=== PATIENT | male | born 1940 | race Caucasian/White ===

== ENCOUNTER 2018-01-23 16:32 | Inpatient (IN) | payer MEDICARE, BC, MEDICAID ==
[~2018-01-23] VITALS: Ht 180.3 cm; Wt 125.3 kg
[~2018-01-23 16:32] MED LIST: ACET325 PO; APIX5 PO; ARIC5TAB PO; CYAN1000P SQ; HYDRO1%T TOPICAL; MILKSUS5 PO
[2018-01-23] MEDS ORDERED: GADODIAMIDE PF 287 MG/ML 20 ML VIAL (for RAD MRI) IVCONTRAST ONE (16:33)
[2018-01-23 16:40] VITALS: O2SAT 100
[2018-01-23] MEDS ORDERED: SODIUM CHLOR 0.9% 1000 ML INJ 1,000 ML IV ONE (16:40)
--- NOTE | 2018-01-23 16:59 | RADRPT ---
EXAM DATE: 01/23/2018 4:53 PM EDT AGE/SEX: 77 years / Male INDICATIONS: Stroke alert, left sided weakness today. CLINICAL DATA: This is the patient's initial encounter. Patient reports that signs and symptoms have been present for 1 day and indicates a pain score of Nonresponsive. MEDICAL/SURGICAL HISTORY: Non-responsive. Non-responsive. RADIATION DOSE: 52.83 CTDI (mGy) COMPARISON: CT brain 12/25/2015. Report was called by [Dr. Chilel to Dr. Rojas at 1656 hours ] TECHNIQUE: CT of the head without contrast. Using automated exposure control and adjustment of the mA and/or kV according to patient size, radiation dose was kept as low as reasonably achievable to ob tain optimal diagnostic quality images. FINDINGS: Supratentorial and infratentorial atrophy. Multiple areas of prior infarction. These involve the righ t frontal lobe, right occipital lobe, left temporal lobe, and left cerebellar hemisphere. Multiple ch ronic lacunar infarctions involving the thalami and basal ganglia bilaterally. Pronounced periventric ular low attenuation change. Prominence of the ventricles secondary to atrophy. No acute hemorrhage, acute infarction, or a mass. CONCLUSION: 1. No acute abnormality. 2. Pronounced atrophy, chronic small vessel ischemic change, and prior infarctions as detailed above . Electronically signed by: Benito Chilel MD 01/23/2018 4:58 PM EDT
[2018-01-23] MEDS ORDERED: IOHEXOL 350 MG/ML 10 ML VIAL (for RAD DIAG) IVCONTRAST ONE (17:05)
[2018-01-23 17:07] LABS: AUTOMATED NEUTROPHIL # 5.4 TH/MM3 (1.8-7.7); BASOPHIL # 0.1 TH/MM3 (0-0.2); BASOPHIL % 0.5 % (0.0-2.0); EOSINOPHIL # 0.4 TH/MM3 (0-0.4); EOSINOPHIL % 3.7 % (0.0-4.0); HEMATOCRIT 44.3 % (39.0-51.0); HEMOGLOBIN 15.5 GM/DL (13.0-17.0); LYMPH % 39.2 % (9.0-44.0); LYMPHOCYTE # 4.6 TH/MM3 (1.0-4.8); MEAN CELL VOLUME 93.7 FL (80.0-100.0); MEAN CORPUSCULAR HEMOGLOBIN 32.7 PG (27.0-34.0); MEAN CORPUSCULAR HGB CONC 34.9 % (32.0-36.0); MEAN PLATELET VOLUME 7.8 FL (7.0-11.0); MONO % 10.9 % (0.0-8.0); MONOCYTE # 1.3 TH/MM3 (0-0.9); NEUT % 45.7 % (16.0-70.0); PLATELET COUNT 240 TH/MM3 (150-450); RED BLOOD COUNT 4.73 MIL/MM3 (4.50-5.90); RED CELL DISTRIBUTION WIDTH 13.3 % (11.6-17.2); WHITE BLOOD COUNT 11.7 TH/MM3 (4.0-11.0)
[2018-01-23 17:08] VITALS: BP 182/73; PULSE 61; RESP 17; TEMP 98.6
[2018-01-23 17:13] VITALS: BP 167/77; PULSE 67; RESP 19; O2SAT 97
[2018-01-23 17:13] LABS: INTERNATIONAL NORMALIZED RATIO 1.3 RATIO; PROTHROMBIN TIME - PATIENT 12.7 SEC (9.8-11.6)
--- NOTE | 2018-01-23 17:25 | RADRPT ---
EXAM DATE: 01/23/2018 5:10 PM EDT AGE/SEX: 77 years / Male INDICATIONS: Stroke alert, left sided weakness today CLINICAL DATA: This is the patient's initial encounter. Patient reports that signs and symptoms have been present for 1 day and indicates a pain score of Nonresponsive. MEDICAL/SURGICAL HISTORY: Non-responsive. Non-responsive. RADIATION DOSE: 10.42 CTDI (mGy) COMPARISON: CT of the brain and CTA of the carotid arteries 01/23/2018. TECHNIQUE: Volumetric scanning was performed using a multi-row detector CT scanner during bolus infu josephine of 48 ml Visipaque 320 (iodixanol) nonionic water-soluble contrast as a cumulative dose for mul tiple exams. The data was post processed with a variety of visualization algorithms including full volume maximum intensity projection, multi-planar sliding thin slab reformation, curved planar reform ation, and surface rendering techniques. Using automated exposure control and adjustment of the mA a nd/or kV according to patient size, radiation dose was kept as low as reasonably achievable to obtain optimal diagnostic quality images. FINDINGS: There is excellent visualization of the major intracranial arteries out to the second-order branch ve ssels. No filling defects observed to suggest embolus or thrombus. Diffuse atherosclerotic disease mo st pronounced within the intercavernous ICAs bilaterally. Within the ICAs this is calcified with area s of 30-40% stenosis bilaterally. Noncalcified atheromatous plaque is seen involving the right M1 seg ment which is very short in this patient with variant anatomy. There is a high-grade stenosis involvi ng the right M1 segment. This is greater than 70%. Multiple areas of luminal narrowing involving ibeth pheral branches of the middle cerebral artery territories bilaterally. The left M1 segment and both a nterior cerebral arteries are patent. Bilateral P1 segment stenoses which are moderate in nature are noted. The basilar artery shows a focal area of mild luminal narrowing within its mid section and dis tally. There is no evidence for aneurysm or vascular malformation. CONCLUSION: 1. Diffuse atherosclerotic disease observed. Multiple areas of luminal narrowing with the most criti alice stenosis involving a very short segment right M1 which is greater than 70% stenotic. Electronically signed by: Benito Chilel MD 01/23/2018 5:23 PM EDT
[2018-01-23 17:29] LABS: TROPONIN I LESS THAN 0.02 NG/ML (0.02-0.05)
[2018-01-23] MEDS ORDERED: MULTTAB67 PO (18:08)
[2018-01-23] MEDS ORDERED: DEXA4VIA IM (18:08)
[2018-01-23] MEDS ORDERED: ALLO100T PO (18:08)
[2018-01-23] MEDS ORDERED: DILT240C PO (18:08)
[2018-01-23] MEDS ORDERED: NEUR100C PO (18:08)
[2018-01-23] MEDS ORDERED: MEMA1PAK PO (18:08)
[2018-01-23] MEDS ORDERED: DONE10TA7 PO (18:08)
[2018-01-23] MEDS ORDERED: TRAM50 PO (18:08)
[2018-01-23] MEDS ORDERED: METO100T PO (18:08)
[2018-01-23] MEDS ORDERED: XARE20TA PO (18:08)
--- NOTE | 2018-01-23 18:08 | PD ---
HPI Chief Complaint: Stroke Alert Time Seen by Provider: 16:39 Travel History International Travel<30 days: No Contact w/Intl Traveler<30days: No Traveled to known affect area: No History of Present Illness HPI Patient is a 77-year-old male who comes in from his nursing facility due to neurologic abnormalities. Time of onset is unclear, per EMS one nurse said that she last saw him normal at 3 PM, another says she last time normal at 1 PM. Patient has symptoms of a left-sided facial droop as well as left-sided weakness. He does have history of TIAs as well as vascular dementia. He is not speaking or providing any history. Per , he is normally alert and oriented and able to carry on conversation. She also says he has had symptoms like this in the past when he had a UTI. PFSH Past Medical History Hx Anticoagulant Therapy: Yes Atrial Fibrillation: Yes Heart Rhythm Problems: Yes Cardiac Catheterization: Yes Chest Pain: Yes Cerebrovascular Accident: Yes (TIA) Dementia: Yes Diminished Hearing: Yes Gout: Yes Genitourinary: Yes (hx of uti) Hypertension: Yes Myocardial Infarction: Yes ?: Not Social History Alcohol Use: No Tobacco Use: No Substance Use: No Allergies-Medications (Allergen,Severity, Reaction): Coded Allergies: No Known Allergies (Unverified Allergy, Unknown, 01/23/18) Reported Meds & Prescriptions Reported Meds & Active Scripts Active Reported Ultram (Tramadol HCl) 50 Mg Tab 50 Mg PO Q8H PRN Memantine HCl 5 Mg (28)-10 Mg (21) Tab.ds.pk 10 Mg PO BID Metoprolol Tartrate 100 Mg Tab 100 Mg PO BID Neurontin (Gabapentin) 100 Mg Cap 100 Mg PO HS Donepezil 10 Mg Tab 10 Mg PO HS Allopurinol 100 Mg Tab 100 Mg PO DAILY Xarelto (Rivaroxaban) 20 Mg Tab 20 Mg PO DAILY Diltiazem HCl ER (Diltiazem HCl Coated Beads) 240 Mg Cap 240 Mg PO DAILY Multiple Vitamin 1 Tab 1 Tab PO DAILY Dexamethasone Sodium Phosphate Inj (Dexamethasone Sod Phosphate Inj) 4 Mg/Ml Vial 4 Mg IM MONTHLY Review of Systems ROS Limitations: Altered Mental Status Physical Exam Narrative GENERAL: Awake and alert, not answering any questions. SKIN: Focused skin assessment warm/dry. No wounds or signs of infection. HEAD: Atraumatic. Normocephalic. EYES: Pupils equal and round and reactive. No scleral icterus. Extraocular movements intact. ENT: Mucous membranes pink and moist. NECK: Trachea midline. No JVD. CARDIOVASCULAR: Regular rate and rhythm. No murmur appreciated. RESPIRATORY: No accessory muscle use. Clear to auscultation. Breath sounds equal bilaterally. GASTROINTESTINAL: Abdomen soft, non-tender, nondistended. Hepatic and splenic margins not palpable. MUSCULOSKELETAL: No obvious deformities. No clubbing. No cyanosis. No edema. NEUROLOGICAL: Awake and alert, follows commands, but does not speak. No effort against gravity with the left arm. Left-sided facial droop present. Decreased strength of the left leg. Data Data Last Documented VS Vital Signs Date Time Temp Pulse Resp B/P (MAP) Pulse Ox O2 Delivery O2 Flow Rate FiO2 01/23/18 17:13 67 19 167/77 (107) 97 Room Air 01/23/18 17:08 98.6 01/23/18 16:40 2.00 Orders Orders Diet Npo (01/23/18 Dinner) Activity Bed Rest (01/23/18 ) Electrocardiogram (01/23/18 ) I-Stat Profile (01/23/18 16:40) Prothrombin Time / Inr (Pt) (01/23/18 16:40) Act Partial Throm Time (Ptt) (01/23/18 16:40) Complete Blood Count With Diff (01/23/18 16:40) Fibrinogen (01/23/18 16:40) Creatine Kinase (Cpk) (01/23/18 16:40) Troponin I (01/23/18 16:40) Type And Screen (01/23/18 16:40) Ct Brain W/O Iv Contrast(Rout) (01/23/18 ) Cta Brain W Iv Contrast W 3d (01/23/18 16:40) Cta Neck W Iv Contrast W 3d (01/23/18 16:40) Consult Neurology (01/23/18 ) Blood Glucose (01/23/18 16:40) Ecg Monitoring (01/23/18 16:40) Neuro Checks Q2HX12,Q4H (01/23/18 16:40) Nursing Bedside Swallow Assess .ONCE (01/23/18 16:40) Iv Access Insert/Monitor (01/23/18 16:40) NPO (01/23/18 16:40) Oximetry (01/23/18 16:40) Resp Oxygen Nc Stroke (01/23/18 ) Sodium Chlor 0.9% 1000 Ml Inj (Ns 1000 M (01/23/18 16:40) Cath For Specimen (01/23/18 16:40) Activity Bed Rest (01/23/18 ) Electrocardiogram (01/23/18 ) Drug Screen, Random Urine (01/23/18 16:45) Consult Neurology (01/23/18 ) Neuro Checks Q2HX12,Q4H (01/23/18 16:45) Nursing Bedside Swallow Assess .ONCE (01/23/18 16:45) Resp Oxygen Nc Stroke (01/23/18 ) Westergren Sedimentation Rate (01/23/18 16:59) Thyroid Stimulating Hormone (01/23/18 16:59) Vitamin B12 (01/23/18 16:59) Urinalysis - C+S If Indicated (01/23/18 16:59) Mri Brain W&W/O Contrast (01/23/18 16:59) Eeg Study (01/23/18 16:59) Outside Machinist Helper / Telemetry HUSSAIN.Q8H (01/23/18 16:59) ^ Seizure Precautions (01/23/18 16:59) [place] (01/23/18 16:59) Sodium Chlor 0.9% 1000 Ml Inj (Ns 1000 M (01/23/18 16:59) Consult Pt Eval & Treat (01/23/18 16:59) Scd&Teds Bilateral/Knee High HUSSAIN.QSHIFT (01/23/18 16:59) (Hub Use Only)Inp Phy Cons/Ref (01/23/18 ) Iohexol 350 Inj (Omnipaque 350 Inj) (01/23/18 17:05) Gadodiamide Pf Inj (Omniscan Pf Inj) (01/23/18 16:33) Aspirin Supp (Aspirin Supp) (01/23/18 18:30) Rivaroxaban (Xarelto) (01/23/18 18:30) Admit Order (Ed Use Only) (01/23/18 ) Labs Laboratory Tests Test 01/23/18 16:40 White Blood Count 11.7 TH/MM3 Red Blood Count 4.73 MIL/MM3 Hemoglobin 15.5 GM/DL Bedside Hemoglobin 15.3 G/DL Hematocrit 44.3 % Bedside Hematocrit 45.0 % Mean Corpuscular Volume 93.7 FL Mean Corpuscular Hemoglobin 32.7 PG Mean Corpuscular Hemoglobin Concent 34.9 % Red Cell Distribution Width 13.3 % Platelet Count 240 TH/MM3 Mean Platelet Volume 7.8 FL Neutrophils (%) (Auto) 45.7 % Lymphocytes (%) (Auto) 39.2 % Monocytes (%) (Auto) 10.9 % Eosinophils (%) (Auto) 3.7 % Basophils (%) (Auto) 0.5 % Neutrophils # (Auto) 5.4 TH/MM3 Lymphocytes # (Auto) 4.6 TH/MM3 Monocytes # (Auto) 1.3 TH/MM3 Eosinophils # (Auto) 0.4 TH/MM3 Basophils # (Auto) 0.1 TH/MM3 CBC Comment DIFF FINAL Differential Comment Prothrombin Time 12.7 SEC Prothromb Time International Ratio 1.3 RATIO Activated Partial Thromboplast Time 31.5 SEC Fibrinogen 419 mg/dL Bedside Sodium 143 MMOL/L Bedside Potassium 4.1 MMOL/L Bedside Chloride 103 MMOL/L Bedside Blood Urea Nitrogen 9 MG/DL Bedside Creatinine 1.0 MG/DL Bedside Glucose 111 MG/DL Total Creatine Kinase 36 U/L Troponin I LESS THAN 0.02 NG/ML MDM Medical Decision Making Medical Screen Exam Complete: Yes Emergency Medical Condition: Yes Medical Record Reviewed: Yes Interpretation(s) ECG shows A. fib with a rate of 57 Differential Diagnosis CVA versus TIA versus UTI versus electrolyte abnormality Narrative Course Patient is a 77-year-old male who comes in due to neurologic abnormalities. Exam shows a left-sided weakness and left-sided facial droop. Stroke alert called. Patient taken to CAT scan where CT head was performed. CT head shows no acute abnormalities. Patient is on Xarelto, so TPA was withheld. Last 24 hours Impressions Brain MRI 01/23/18 1659 Signed Impressions: CONCLUSION: 1. No evidence of acute infarct, hemorrhage, mass or edema. 2. Generalized atrophy 3. Moderate chronic ischemic white matter disease with focal areas of chronic deep white matter infarction. 4. Stable left temporal and left cerebellar encephalomalacia. Head CTA 01/23/18 1640 Signed Impressions: CONCLUSION: 1. Diffuse atherosclerotic disease observed. Multiple areas of luminal narrowi ng with the most critical stenosis involving a very short segment right M1 whic h is greater than 70% stenotic. Head CT 01/23/18 0000 Signed Impressions: CONCLUSION: 1. No acute abnormality. 2. Pronounced atrophy, chronic small vessel ischemic change, and prior infarct ions as detailed above. Dr. Rojas has seen the patient, orders placed. He will be admitted to medicine for further management. Diagnosis Primary Impression: CVA (cerebral vascular accident) Qualified Codes: I63.9 - Cerebral infarction, unspecified Admitting Information Admitting Physician Requests: Admit Charu Yang MD January 23, 2018 18:08
--- NOTE | 2018-01-23 18:11 | RADRPT ---
EXAM DATE: 01/23/2018 6:03 PM EDT AGE/SEX: 77 years / Male INDICATIONS: Stroke alert. Left side weakness. CLINICAL DATA: This is the patient's initial encounter. Patient reports that signs and symptoms have been present for 1 day and indicates a pain score of 0/10. MEDICAL/SURGICAL HISTORY: Hypertension. Discectomy, lumbar. Coronary artery stent. COMPARISON: [facility] [place], MRI BRAIN W & W/O CONTRAST, 12/26/2015. . TECHNIQUE: Multiplanar, multisequence examination of the brain was performed without and with 20 ml O mniscan (gadodiamide) contrast as a single exam dose. FINDINGS: Cerebrum: Generalized atrophy with enlargement of the CSF spaces is again noted and appear stable. F ocal area of encephalomalacia is identified anteriorly in the left temporal lobe which is unchanged. No evidence of midline shift, mass lesion, hemorrhage or acute infarction. No extraaxial fluid colle ctions are seen. The pituitary gland and suprasellar cistern are normal in configuration. White Matter: Moderate periventricular T2 hyperintense changes are noted. There are focal areas of c ystic degeneration within the periventricular white matter characteristic of old deep white matter in farcts. These are identified previously. There is no evidence of acute white matter infarct. Posterior Fossa: Focal encephalomalacia is again identified along the posterior inferior surface of t he left cerebellar hemisphere. Brainstem and cerebellum are otherwise stable. Diffusion Imaging: No focal areas of restricted diffusion are seen. No evidence of acute infarction . Extracranial: The visualized portions of the orbits and paranasal sinuses are unremarkable. Post Contrast: No abnormal areas of parenchymal or dural enhancement. No evidence of blood-brain ba rrier breakdown. CONCLUSION: 1. No evidence of acute infarct, hemorrhage, mass or edema. 2. Generalized atrophy 3. Moderate chronic ischemic white matter disease with focal areas of chronic deep white matter infa rction. 4. Stable left temporal and left cerebellar encephalomalacia. Electronically signed by: Anup Post MD 01/23/2018 6:09 PM EDT
--- NOTE | 2018-01-23 18:12 | HHI.HP ---
[facility] Service Family Medicine Primary Care Physician Daniel Rob MD (Paul) Admission Diagnosis Diagnoses: International Travel<30 Days: No Contact w/Intl Traveler<30days: No Known Affected Area: No History of Present Illness 77-year-old male with history of A. fib, multiple TIAs, CAD 4 stents, hypertension, and dementia presents to the ED via EVAC for left-sided weakness and slurred speech. He is a resident of [facility]. Accompanied by , who provides all of the history. states that she got a call from the [facility] around 2 PM this afternoon. Nursing staff are concerned because patient appears lethargic and was not responding. Patient was noted to have left arm weakness and slurred speech. Patient was manually brought to the ED via EVAC. Unsure timeframe when patient was last seen normal. states that his symptoms are similar to when he had a UTI in the past. also states that patient has gained some slight function back in his left side while in the ER. He endorses shortness of breath but no chest pain. Patient has no history of seizures. He denies fevers, nausea vomiting, headaches, vision changes, weight loss, back pain, abdominal pain, and dysuria. (Melia Alfaro MD R1) Review of Systems Constitutional: DENIES: Fever, Weight loss Eyes: DENIES: Vision loss Ears, nose, mouth, throat: DENIES: Oral lesions, Running Nose Respiratory: COMPLAINS OF: Shortness of breath, DENIES: Cough Cardiovascular: DENIES: Chest pain, Palpitations Gastrointestinal: DENIES: Abdominal pain, Nausea, Vomiting Genitourinary: DENIES: Dysuria Musculoskeletal: DENIES: Muscle aches Hematologic/lymphatic: DENIES: Lymphadenopathy Neurologic: DENIES: Headache (Melia Alafro MD R1) Past Family Social History Past Medical History CAD Afib TIA HTN Hyperlipidemia Asthma Gout Past Surgical History CAD with 4 stents (Melia Alfaro MD R1) Allergies: Coded Allergies: No Known Allergies (Unverified Allergy, Unknown, 01/23/18) Family History Dad [place] - 62 Mom- [place]- 80s Daughter 44- hemorrhagic stroke Social History currently lives at [facility] Used to drink in the past Denies tobacco use- never smoker No illicit use (Melia Alfaro MD R1) Physical Exam Vital Signs Vital Signs Date Time Temp Pulse Resp B/P (MAP) Pulse Ox O2 Delivery O2 Flow Rate FiO2 01/23/18 17:13 67 19 167/77 (107) 97 Room Air 01/23/18 17:12 95 Room Air 01/23/18 17:08 98.6 61 17 182/73 (109) 01/23/18 16:40 100 Nasal Cannula 2.00 01/23/18 16:40 100 2.00 Physical Exam GENERAL: Elderly male lying in bed with head flat, at bedside SKIN: Stasis dermatitis in lower extremities HEAD: Atraumatic. Normocephalic. No temporal or scalp tenderness. EYES: Pinpoint pupils bilaterally ENT: Nose without bleeding, purulent drainage or septal hematoma. Throat without erythema, tonsillar hypertrophy or exudate. Uvula midline. Airway patent. NECK: Trachea midline. No JVD or lymphadenopathy. Supple, nontender, no meningeal signs. CARDIOVASCULAR: Irregular rate and rhythm RESPIRATORY: Clear to auscultation. Breath sounds equal bilaterally. No wheezes , rales, or rhonchi. GASTROINTESTINAL: Abdomen soft, non-tender, nondistended. No hepato-splenomegaly , or palpable masses. No guarding. MUSCULOSKELETAL: Nonpitting edema bilaterally. No calf tenderness. Negative Homans sign bilaterally. NEUROLOGICAL: Awake and alert. Oriented 3. Able to tell me his name. Having difficulty speaking and coming up with words. Able to follow commands. Otherwise cranial nerves intact. No facial droop noted. Sensation intact throughout. 3/5 strength in left arm compared to right arm. 4/5 strength in the left leg compared to right leg. Pedal pulses 2+. No clonus noted. Patient is able to do finger-nose test with the right side, unable to do with the left side. Reflexes 2+. Unable to perform pronator drift. Laboratory Laboratory Tests Test 01/23/18 16:40 White Blood Count 11.7 Red Blood Count 4.73 Hemoglobin 15.5 Bedside Hemoglobin 15.3 Hematocrit 44.3 Bedside Hematocrit 45.0 Mean Corpuscular Volume 93.7 Mean Corpuscular Hemoglobin 32.7 Mean Corpuscular Hemoglobin Concent 34.9 Red Cell Distribution Width 13.3 Platelet Count 240 Mean Platelet Volume 7.8 Neutrophils (%) (Auto) 45.7 Lymphocytes (%) (Auto) 39.2 Monocytes (%) (Auto) 10.9 Eosinophils (%) (Auto) 3.7 Basophils (%) (Auto) 0.5 Neutrophils # (Auto) 5.4 Lymphocytes # (Auto) 4.6 Monocytes # (Auto) 1.3 Eosinophils # (Auto) 0.4 Basophils # (Auto) 0.1 CBC Comment DIFF FINAL Differential Comment Prothrombin Time 12.7 Prothromb Time International Ratio 1.3 Activated Partial Thromboplast Time 31.5 Fibrinogen 419 Bedside Sodium 143 Bedside Potassium 4.1 Bedside Chloride 103 Bedside Blood Urea Nitrogen 9 Bedside Creatinine 1.0 Bedside Glucose 111 Total Creatine Kinase 36 Troponin I LESS THAN 0.02 (Melia Alfaro MD R1) Result Diagram: 01/23/18 1640 Imaging Last Impressions Brain MRI 01/23/18 1659 Signed Impressions: CONCLUSION: 1. No evidence of acute infarct, hemorrhage, mass or edema. 2. Generalized atrophy 3. Moderate chronic ischemic white matter disease with focal areas of chronic deep white matter infarction. 4. Stable left temporal and left cerebellar encephalomalacia. Neck CTA 01/23/18 1640 Signed Impressions: CONCLUSION: 1. Significant atherosclerotic disease. Greater than 70% stenosis of the left ICA and 60% stenosis of the right ICA. When correlating to the prior ultrasound there has been progression in the patient's disease. Both carotid arteries are quite tortuous. Patent vertebral arteries. The right is dominant. Head CTA 01/23/18 1640 Signed Impressions: CONCLUSION: 1. Diffuse atherosclerotic disease observed. Multiple areas of luminal narrowi ng with the most critical stenosis involving a very short segment right M1 whic h is greater than 70% stenotic. Head CT 01/23/18 0000 Signed Impressions: CONCLUSION: 1. No acute abnormality. 2. Pronounced atrophy, chronic small vessel ischemic change, and prior infarct ions as detailed above. (Melia Alfaro MD R1) Caprini VTE Risk Assessment Caprini VTE Risk Assessment: Mod/High Risk (score >= 2) Caprini Risk Assessment Model Point Value = 1 Point Value = 2 Point Value = 3 Point Value = 5 Age 41-60 Minor surgery BMI > 25 kg/m2 Swollen legs Varicose veins or History of unexplained or recurrent spontaneous Oral contraceptives or hormone replacement Sepsis (< 1 month) Serious lung disease, including pneumonia (< 1 month) Abnormal pulmonary function Acute myocardial infarction Congestive heart failure (< 1 month) History of inflammatory bowel disease Medical patient at bed rest Age 61-74 Arthroscopic surgery Major open surgery (> 45 min) Laparoscopic surgery (> 45 min) Malignancy Confined to bed (> 72 hours) Immobilizing plaster cast Central venous access Age >= 75 History of VTE Family history of VTE Factor V Leiden Prothrombin [id number] Lupus anticoagulant Anticardiolipin antibodies Elevated serum homocysteine Heparin-induced thrombocytopenia Other congenital or acquired thrombophilia Stroke (< 1 month) Elective arthroplasty Hip, pelvis, or leg fracture Acute spinal cord injury (< 1 month) Prophylaxis Regimen Total Risk Factor Score Risk Level Prophylaxis Regimen 0-1 Low Early ambulation 2 Moderate Order ONE of the following: *Sequential Compression Device (SCD) *Heparin 5000 units SQ BID 3-4 Higher Order ONE of the following medications: *Heparin 5000 units SQ TID *Enoxaparin/Lovenox 40 mg SQ daily (WT < 150 kg, CrCl > 30 mL/min) *Enoxaparin/Lovenox 30 mg SQ daily (WT < 150 kg, CrCl > 10-29 mL/min) *Enoxaparin/Lovenox 30 mg SQ BID (WT < 150 kg, CrCl > 30 mL/min) AND/OR *Sequential Compression Device (SCD) 5 or more Highest Order ONE of the following medications: *Heparin 5000 units SQ TID (Preferred with Epidurals) *Enoxaparin/Lovenox 40 mg SQ daily (WT < 150 kg, CrCl > 30 mL/min) *Enoxaparin/Lovenox 30 mg SQ daily (WT < 150 kg, CrCl > 10-29 mL/min) *Enoxaparin/Lovenox 30 mg SQ BID (WT < 150 kg, CrCl > 30 mL/min) AND *Sequential Compression Device (SCD) (Melia Alfaro MD R1) Assessment and Plan Assessment and Plan 77-year-old male with history of A. fib, multiple TIAs, CAD 4 stents, hypertension, and dementia presents to the ED via EVAC for left-sided weakness and slurred speech. Code Status DNR Discussed Condition With Dr. Herron (Melia Alfaro MD R1) Attending Attestation THIS CASE WAS DISCUSSED WITH THE RESIDENT PHYSICIANS. I HAVE REVIEWED THE RECORD AND AGREE WITH THE ABOVE NOTE AND PLAN OF CARE WAS DISCUSSED. I HAVE AUTHORIZED THE ORDER FOR ADMISSION TO AN IN-PATIENT STATUS. (Kevin Cooper MD) Problem List: (1) TIA (transient ischemic attack) ICD Codes: G45.9 - Transient cerebral ischemic attack, unspecified Status: Acute Plan: Patient presenting with left-sided weakness and slurred speech. Most likely TIA patient has no acute structural abnormality on MRI. CT head negative. Patient was not a candidate for TPA since patient was on Xarelto. Brain MRI demonstrates no evidence of acute infarct, hemorrhage, mass or edema. Generalized atrophy. Moderate chronic ischemic white matter disease with focal areas of chronic deep white matter infarction. Stable left temporal and left cerebellar and several low malacia. N.p.o., bedside swallow test NS fluids 75mls/hr HOB elevated 30 degrees while in bed Aspirin 300 mg rectal daily Cardiac telemetry continuous A1c and lipid profile ordered TSH within normal limits Troponin less than 0.02, EKG demonstrates a.fib with slow ventricular response, continue to trend troponin and EKG x2 q6h 2D with Doppler echo ordered EEG ordered PT, OT, speech therapy Patient demonstrates greater than 70% stenosis of left ICA. Vascular surgery consulted for possible carotid endarterectomy. Imaging: Head CTA demonstrates diffuse arteriosclerotic disease observed. Multiple areas of luminal narrowing with the most critical stenosis involving very short segment right [place] which is greater than 70% stenotic. Neck CTA demonstrates significant atherosclerotic disease. Greater than 70% stenosis of the left ICA and 60% stenosis of the right ICA. When correlated to the prior ultrasound there has been progression of the patient's disease. Patent vertebral arteries. (2) Dementia ICD Codes: F03.90 - Unspecified dementia without behavioral disturbance Status: Acute Plan: Continue donepezil 10 mg p.o. at bedtime Continue memantine 10 milligrams p.o. twice daily (3) Hypertension ICD Codes: I10 - Essential (primary) hypertension Status: Acute Plan: Held home metoprolol and home diltiazem to allow for permissive hypertension (4) Afib ICD Codes: I48.91 - Unspecified atrial fibrillation Status: Acute Plan: Continue Xarelto 20 mg p.o. daily (5) Gout ICD Codes: M10.9 - Gout, unspecified Plan: Continue allopurinol 100 mg p.o. daily (6) Nutrition, metabolism, and development symptoms ICD Codes: R63.8 - Other symptoms and signs concerning food and fluid intake Plan: Diet: N.p.o. until patient passes bedside swallow test Fluids: NS 75mls/hr Vitals every 4 hours, neuro checks every 4, monitor I's and O's Case Management consulted (Melia Alfaro MD R1) Physician Certification 2 Midnight Certification Type: Admission for Inpatient Services Order for Inpatient Services The services are ordered in accordance with Medicare regulations or non- Medicare payer requirements, as applicable. In the case of services not specified as inpatient-only, they are appropriately provided as inpatient services in accordance with the 2-midnight benchmark. Estimated LOS (days): 2 2 days is the estimated time the patient will need to remain in the hospital, assuming treatment plan goals are met and no additional complications. Post-Hospital Plan: Home (Melia Alfaro MD R1) Problem Qualifiers (1) Hypertension: Qualified Codes: I10 - Essential (primary) hypertension Melia Alfaro MD R1 January 23, 2018 18:12 Kevin Cooper MD January 24, 2018 11:32
--- NOTE | 2018-01-23 18:45 | RADRPT ---
EXAM DATE: 01/23/2018 6:32 PM EDT AGE/SEX: 77 years / Male INDICATIONS: Stroke alert, left sided weakness today CLINICAL DATA: This is the patient's initial encounter. Patient reports that signs and symptoms have been present for 1 day and indicates a pain score of Nonresponsive. MEDICAL/SURGICAL HISTORY: Non-responsive. Non-responsive. RADIATION DOSE: 10.42 CTDI (mGy) ; Combined studies COMPARISON: CTA of the brain 01/23/2018. Carotid ultrasound 12/26/2015 TECHNIQUE: Volumetric scanning was performed using a multirow detector CT scanner during bolus infus ion of 48 ml Visipaque 320 (iodixanol) nonionic water-soluble contrast as a cumulative dose for mult iple exams. The data was postprocessed with a variety of visualization algorithms including full-vo lume maximum intensity projection, multiplanar sliding thin-slab reformation, curved-planar reformati on, and surface-rendering techniques. Using automated exposure control and adjustment of the mA and/ or kV according to patient size, radiation dose was kept as low as reasonably achievable to obtain op timal diagnostic quality images. FINDINGS: Aortic Arch: There is a three-vessel origin of the great vessels from the aorta. Calcified plaque in volving the arch and origin of the arch vessels. No evidence of ostial narrowing Right Carotid: Motion artifact creates some limitations to the quantification of the stenosis. This is aggravated by the heavily calcified plaque which generates beam hardening artifact. The right comm on carotid artery is tortuous. There are scattered plaque within its mid section without stenosis. He avily calcified and contiguous plaque is seen involving the carotid bulb extending into the origin of the ICA and ECA. The most significant stenosis is 60% involving the origin of the ICA. This generate s a highly irregular luminal contour. The ECA is also stenotic with 30-40% stenosis. The more cephala d portion of the extracranial ICA is patent.. Left Carotid: The left common carotid artery shows scattered calcified plaque without luminal narrow ing. Heavily calcified plaque is seen involving the carotid bulb extending into the ICA and ECA. The calcified nature generates beam hardening artifact. This in combination with the motion artifact degr ades the ability to quantify the stenosis. A high-grade stenosis of the ICA origin greater than 70% i s felt present. It is also highly irregular in luminal contour. The ECA is patent. The more cephalad portion of the extracranial ICA is patent. Vertebrals: The right vertebral artery is dominant. Calcified plaque at the origin without appreciab le stenosis. Left is patent.. Elevated flow velocities and ICA/CCA ratios have been found to correlate with increased degrees of ve ssel stenosis, calculated as percentage of diameter relative to a normal segment of distal ICA/CCA. CONCLUSION: 1. Significant atherosclerotic disease. Greater than 70% stenosis of the left ICA and 60% stenosis o f the right ICA. When correlating to the prior ultrasound there has been progression in the patient's disease. Both carotid arteries are quite tortuous. Patent vertebral arteries. The right is dominant. Electronically signed by: Benito Chilel MD 01/23/2018 6:44 PM EDT
[2018-01-23] MEDS: ASPIRIN 300 MG SUPP RECTAL SCH (19:10)
[2018-01-23] MEDS: SODIUM CHLOR 0.9% 1000 ML INJ 1,000 ML IV SCH (19:11)
[2018-01-23] MEDS ORDERED: traMADol HCL 50 MG TAB PO PRN (19:15)
[2018-01-23 19:56] LABS: BILIRUBIN, URINE NEG (NEG); BLOOD, URINE NEG (NEG); GLUCOSE,URINE NEG (NEG); KETONE, URINE NEG (NEG); NITRITE,URINE NEG (NEG); PH, URINE 6.5 (5.0-8.5); SQUAMOUS EPITHELIAL CELL URINE <1 /hpf (0-5); URINE COLOR YELLOW (YELLW/STRAW); URINE LEUKOCYTE ESTERASE NEG (NEG)
[2018-01-23 20:28] VITALS: BP 106/56; PULSE 72; RESP 18; TEMP 98.5; O2SAT 94
[2018-01-23] MEDS: RIVAROXABAN 20 MG TAB PO SCH (20:50)
[2018-01-23] MEDS: MEMANTINE HCL 10 MG TAB PO SCH (20:50)
[2018-01-23] MEDS: DONEPEZIL HCL 5 MG TAB PO SCH (20:50)
[2018-01-23] MEDS ORDERED: GABAPENTIN 100 MG CAP PO SCH (21:00)
--- NOTE | 2018-01-23 21:27 | EKG ---
Date Performed: 01/23/2018 Time Performed: 17:15:11 PTAGE: 77 years EKG: ATRIAL FIBRILLATION WITH SLOW VENTRICULAR RESPONSE ABNORMAL RHYTHM ECG PREVIOUS TRACING : 12/25/2015 20.07 No significant change from previous tracing noted. DOCTOR: Jack Tomlinson Interpretating Date/Time 01/23/2018 21:26:20
[2018-01-24] VITALS (10 sets, daily range): BP systolic 107–157; BP diastolic 56–78; PULSE 53–71; RESP 16–18; TEMP 97.2–98.6; O2SAT 94–98
--- NOTE | 2018-01-24 01:13 | HHI.FPPN ---
Addendum to progress note ADDENDUM Reason for addendum: Additonal documentation Additional information S: Was called by nurse regarding 77 y/o M patient w/ hx of afib, dementia, TIA presenting w/worsening cough and possible hemoptysis. Was admitted today for stroke work-up. Nurse stated that on admission, patient's lungs were clear. He had no dyspnea, hemoptysis, or issues breathing. Was made NPO and undergoing a stroke work-up. Respiratory rate and O2 sats wnl. Patient has dementia and is unable to describe symptoms. Four hours after admission, patient had been laying flat in bed.His head of bed was elevated when it was time for him to take his medications and remained elevated, as patient started to show difficulty swallowing and coughing just before medications. One hour after receiving medications (pills w/a cup of water), patient started coughing up frothy, pink- tinged sputum, and nurse perceived that patient looked like he was choking or had aspirated. Heart rate decreased to low 50s and dipped a few time to 40s. Patient has a hx of NH x 2 but no hx of CHF. No endorsement of chest pain, no fevers, no tachypnea or hypoxia. O: HR 53, BP 134/73, Pulse Ox 94% Gen: This is a pleasant, elderly gentleman sitting quietly in bed, occasionally coughing a deep, wet cough. No hemoptysis visualized HEENT: trachea midline, no rhinorrhea or JVD Resp: inspiratory and expiratory rhonchi, poor inspiratory airflow, especially in the mid-lower lobes Heart: irregular, difficult to auscultate murmurs MSK: no LE edema A/P: 77 y/o M w/hx of afib and TIA presenting w/worsening cough. Diff: chemical pneumonitis v aspiration pneumonia v fluid overload Nurses state that cardiac tele showed some pauses, but it appears that his rate is irregular, and he has had some occasional PVCs. ECG performed earlier showed afib w/slow ventricular response (per report). Troponins and cardiac enzymes have been negative so far. Gastroccult of sputum performed in patient room is negative. - CXR - Hold IVF to avoid fluid overload - Duonebs Q6H while awake - suction and aggressive pulmonary toilet - keep head of bed elevated/patient upright - remain NPO - Start Zosyn 4.5 g q6H to cover for anaerobes and possible resistant bacilli ( [facility] hx). Consider repeating CXR - may discontinue antibiotics if no infiltrates develop after at least 24 hrs - sputum culture and gram stain - Con't to trend EKG and troponins Will make patient inpatient for more frequent monitoring and care. Discussed w/Dr. Herron (Radha Serrano MD R1) Radha Serrano MD R1 January 24, 2018 01:13 Kevin Cooper MD January 24, 2018 11:32
--- NOTE | 2018-01-24 01:47 | RADRPT ---
EXAM DATE: 01/24/2018 1:44 AM EDT AGE/SEX: 77 years / Male INDICATIONS: Cough. CLINICAL DATA: This is the patient's initial encounter. Patient reports that signs and symptoms have been present for 1 day and indicates a pain score of 0/10. MEDICAL/SURGICAL HISTORY: Hypertension. Stroke. A-fib. Myocardial infarction. None. COMPARISON: [facility] [place], CHEST SINGLE AP, 12/25/2015. . FINDINGS: The lungs are clear without infiltrate, nodule, or mass. There is no appreciable pleural effusion for technique. Heart and mediastinum are unremarkable. CONCLUSION: No acute cardiopulmonary disease. Electronically signed by: Aide Bright MD 01/24/2018 1:45 AM EDT
[2018-01-24] MEDS ORDERED: AMPICILLIN-SULBACTAM INJ 1,500 MG in SODIUM CHLORIDE 0.9% INJ 100 ML IV SCH (02:00)
[2018-01-24] MEDS: PIPERACIL-TAZO 4.5 GM PREMIX 100 ML IV SCH ×4 (03:27→22:30)
--- NOTE | 2018-01-24 07:49 | MB ---
cc: Sage Rojas MD DATE: 01/23/2018 HISTORY OF PRESENT ILLNESS: The patient is a 77-year-old right-handed man with a history of a stroke, history of vascular dementia, who I had seen back in 2016. I had put him on Eliquis. He had several strokes in the past and he is brought in for a stroke alert today. Evidently at 3:00 p.m., he was seen talking and doing well and then about half hour or so ago, he was noticed not to be doing so well. Currently, 4:49 p.m. He does, however, takes Xarelto at the correction. SOCIAL HISTORY: Not a smoker or drinker. He used to drink, but not anymore. Evidently is in a correction. FAMILY HISTORY: Negative for cancer, seizure, stroke in the past. REVIEW OF SYSTEMS: Unable to obtain. He had a history of atrial fibrillation and he has been on Xarelto in the past. He had some TIAs with dementia, had been in [facility] correction. I had seen him for a left facial droop, left-sided weakness, change in mental status at that time, although they had evidently resolved by the time EMS had arrived back in 2016. He was on an aspirin at that time. His face was symmetric when I saw him, he had normal strength. His white count was 13.8. Sedimentation rate was [address] showed large encephalomalacia in the left cerebellum, left temporal lobe, left frontal head region. Vents were prominent. I recommended to put him back on his Xarelto, doing an MRI of the brain at that time. I then saw him in followup. MRI showed old right stroke and a small one on the left. Ultrasound was negative. EEG was negative. B12 was low. He knew [facility], but not the year. He was moving everything fine. We put him on Eliquis. The aspirin was stopped. CURRENT MEDICATIONS: He is on Xarelto 20 mg a day, allopurinol, 10 mg of Aricept, Neurontin 100 at bedtime, multivitamin, diltiazem. PHYSICAL EXAMINATION: He appears to be in sinus rhythm. There were no carotid bruits. Heart was regular rhythm. I did not detect a murmur. Blood pressure 178/85. Visual navarro are full. He has just a hint of droopiness on the left side of his face. He cannot really tell me if he can feel pin throughout, but he does respond as if he feels sensation on both sides of his body. He had normal strength in the right upper and lower extremity. Left upper extremity seems to hang off the CT table, but he can hold it up a bit. I would put it about a 3/5 and left lower extremity about a 3+ to 4-/5. Toes are upgoing on the left, equivocal to downgoing on the right. He is awake and alert. His speech is a little hypophonic, but he did name my glasses for me and follow commands well. LABORATORY DATA: Labs from today are pending. Sedimentation rate is noted to be normal in the past, as was the CBC. RPR in the past had been normal. CARLENE 1:320 in the past. UA was negative in the past. The patient's metabolic profile was normal in the past. B12 was 267. Thyroid was normal. Methylmalonic acid and thiamine has been normal. Coags normal in the past. He had a brain MRI back in 2016, old right occipital lobe infarct, nothing acute. His carotid ultrasound at that time was normal. MRA of the [place] at that time normal. ECHOCARDIOGRAM: His echocardiogram in the past showed a normal ejection fraction in 2016. Normal mitral valves. IMAGING: CT of the brain here shows multiple bilateral old strokes, including the left temporal lobe and no hemorrhage, nothing acute. His CTA of the neck and [place] appears to be preliminary negative. His Carotids are tortuous with a lot of calcification. We await the official report. ASSESSMENT AND PLAN: Because he is on Xarelto and because there is no arterial blockage, I cannot give him TPA. His NIH stroke scale, I would put at this time, considering his dementia, as a 5. Another possibility is he could have had an unwitnessed seizure with all of his old strokes. We will check an EEG and an MRI on him. MD REAGAN Olivares/HELEN , 04:58 PM , 05:45 PM
--- NOTE | 2018-01-24 07:52 | EKG ---
Date Performed: 01/24/2018 Time Performed: 05:37:42 PTAGE: 77 years EKG: Atrial fibrillation Septal and lateral ST-T changes are nonspecific Abnormal ECG PREVIOUS TRACING : 01/23/2018 17.15 No significant change from previous tracing noted. DOCTOR: Jack Tomlinson Interpretating Date/Time 01/24/2018 07:50:14
[2018-01-24] MEDS ORDERED: RESP: ALBUTEROL 2.5 MG/IPRATROPIUM 0.5 MG NEB (SCH) NEB (08:00)
[2018-01-24] MEDS ORDERED: RIVAROXABAN 20 MG TAB PO SCH (09:00)
[2018-01-24] MEDS ORDERED: ALLOPURINOL 100 MG TAB PO SCH (09:00)
[2018-01-24] MEDS: RIVAROXABAN 20 MG TAB PO SCH (09:24)
[2018-01-24] MEDS: MEMANTINE HCL 10 MG TAB PO SCH ×2 (09:25→22:30)
[2018-01-24] MEDS: MULTIVITAMIN TAB PO SCH (09:25)
[2018-01-24] MEDS: ASPIRIN 300 MG SUPP RECTAL SCH (09:26)
[2018-01-24] MEDS ORDERED: RESP: ALBUTEROL 2.5 MG/IPRATROPIUM 0.5 MG NEB (PRN) NEB (09:45)
--- NOTE | 2018-01-24 11:05 | HHI.HP ---
[facility] Service Family Medicine Primary Care Physician Daniel Rob MD (Paul) Admission Diagnosis Diagnoses: (1) TIA (transient ischemic attack) (2) Dementia (3) Hypertension (4) Afib (5) Gout (6) Nutrition, metabolism, and development symptoms International Travel<30 Days: No Contact w/Intl Traveler<30days: No Known Affected Area: No History of Present Illness 77-year-old male presenting to the emergency department with relatively sudden onset left-sided weakness, facial droop, and slurred speech. He is resident of [facility] [place] and has a history of atrial fibrillation on anticoagulation, multiple TIAs, coronary artery disease, hypertension, and dementia. He was in his usual state of health yesterday which includes being relatively oriented and able to hold a conversation when nursing noted around 2 PM that he was lethargic and not responding and had left-sided weakness. He was brought to the emergency department for further evaluation of this left-sided weakness. In the emergency department, he had a workup including MRI of the brain that shows no acute infarct. Overnight, he continues to have left-sided weakness with facial droop that seems to be somewhat worse today. Family is in the room and they state that his left-sided weakness has somewhat progressed and he continues to have his left-sided facial droop. He has been somewhat lethargic overnight and had several episodes of coughing and emesis of a pink, frothy sputum. He was given his medications by nursing last night, and approximately 1 hour after being given his oral medications he began coughing that was productive of pink sputum. He was started on Zosyn due to concern for aspiration and chest x-ray was ordered that remained clear. He never had a hypoxic episode and did not require supplemental oxygen. Sputum cultures were also obtained. This morning , he has not had any new episodes of sputum production or coughing but appears somewhat tired due to being unable to sleep. This morning he denies any musculoskeletal pain, denies any chest pain or palpitations, denies any nausea or vomiting, denies any abdominal pain, denies any shortness of breath. Past Family Social History Past Medical History CAD Afib TIA HTN Hyperlipidemia Asthma Gout Past Surgical History CAD with 4 stents Allergies: Coded Allergies: No Known Allergies (Unverified Allergy, Unknown, 01/23/18) Family History Dad [place] - 62 Mom- [place]- 80s Daughter 44- hemorrhagic stroke Social History currently lives at [facility] Used to drink in the past Denies tobacco use- never smoker No illicit use Physical Exam Vital Signs Vital Signs Date Time Temp Pulse Resp B/P (MAP) Pulse Ox O2 Delivery O2 Flow Rate FiO2 01/24/18 09:07 97.2 65 17 157/73 (101) 96 01/24/18 08:25 98 01/24/18 05:00 97.5 59 18 150/78 (102) 94 01/24/18 04:55 53 01/24/18 03:00 57 01/24/18 00:09 98.3 58 17 107/56 (73) 94 01/23/18 20:28 98.5 72 18 106/56 (73) 94 01/23/18 19:47 21 01/23/18 19:41 01/23/18 17:13 67 19 167/77 (107) 97 Room Air 01/23/18 17:12 95 Room Air 01/23/18 17:08 98.6 61 17 182/73 (109) 01/23/18 16:40 100 Nasal Cannula 2.00 01/23/18 16:40 100 2.00 Physical Exam GENERAL: Elderly male lying in bed with head flat, at bedside SKIN: Stasis dermatitis in lower extremities HEAD: Atraumatic. Normocephalic. EYES: Pupils equal, reactive, and round bilaterally CARDIOVASCULAR: Irregularly irregular rate and rhythm RESPIRATORY: Clear to auscultation. Breath sounds equal bilaterally. No wheezes , rales, or rhonchi. GASTROINTESTINAL: Abdomen soft, non-tender, nondistended. MUSCULOSKELETAL: Nonpitting edema bilaterally. No calf tenderness. Negative Homans sign bilaterally. NEUROLOGICAL: Awake and alert. Having difficulty speaking and coming up with words. Able to follow commands and answer yes or no. Otherwise cranial nerves intact. Left-sided facial droop noted. Sensation intact throughout. 3/5 strength in left arm compared to right arm. 4/5 strength in the left leg compared to right leg. Reflexes 2+. Unable to perform pronator drift. Laboratory Laboratory Tests Test 01/23/18 16:40 01/23/18 19:05 01/23/18 23:03 01/24/18 04:39 White Blood Count 11.7 Red Blood Count 4.73 Hemoglobin 15.5 Bedside Hemoglobin 15.3 Hematocrit 44.3 Bedside Hematocrit 45.0 Mean Corpuscular Volume 93.7 Mean Corpuscular Hemoglobin 32.7 Mean Corpuscular Hemoglobin Concent 34.9 Red Cell Distribution Width 13.3 Platelet Count 240 Mean Platelet Volume 7.8 Neutrophils (%) (Auto) 45.7 Lymphocytes (%) (Auto) 39.2 Monocytes (%) (Auto) 10.9 Eosinophils (%) (Auto) 3.7 Basophils (%) (Auto) 0.5 Neutrophils # (Auto) 5.4 Lymphocytes # (Auto) 4.6 Monocytes # (Auto) 1.3 Eosinophils # (Auto) 0.4 Basophils # (Auto) 0.1 CBC Comment DIFF FINAL Differential Comment Erythrocyte Sedimentation Rate 25 Prothrombin Time 12.7 Prothromb Time International Ratio 1.3 Activated Partial Thromboplast Time 31.5 Fibrinogen 419 Bedside Sodium 143 Bedside Potassium 4.1 Bedside Chloride 103 Bedside Blood Urea Nitrogen 9 Bedside Creatinine 1.0 Bedside Glucose 111 Total Creatine Kinase 36 Troponin I LESS THAN 0.02 LESS THAN 0.02 LESS THAN 0.02 Vitamin B12 Level 346 Thyroid Stimulating Hormone 3rd Gen 2.700 Urine Color YELLOW Urine Turbidity CLEAR Urine pH 6.5 Urine Specific [place] 1.039 Urine Protein NEG Urine Glucose (UA) NEG Urine Ketones NEG Urine Occult Blood NEG Urine Nitrite NEG Urine Bilirubin NEG Urine Urobilinogen LESS THAN 2.0 Urine Leukocyte Esterase NEG Urine RBC 2 Urine WBC 1 Urine Squamous Epithelial Cells <1 Microscopic Urinalysis Comment CULT NOT INDICATED Urine Opiates Screen NEG Urine Barbiturates Screen NEG Urine Amphetamines Screen NEG Urine Benzodiazepines Screen NEG Urine Cocaine Screen NEG Urine Cannabinoids Screen NEG Date/Time Source Procedure Growth Status 01/24/18 03:30 Sputum Expectorated Sputum Gram Stain - Final Resulted 01/24/18 03:30 Sputum Expectorated Sputum Sputum Culture Pending Resulted Result Diagram: 01/23/18 1640 Imaging Last Impressions Brain MRI 01/23/18 1659 Signed Impressions: CONCLUSION: 1. No evidence of acute infarct, hemorrhage, mass or edema. 2. Generalized atrophy 3. Moderate chronic ischemic white matter disease with focal areas of chronic deep white matter infarction. 4. Stable left temporal and left cerebellar encephalomalacia. Neck CTA 01/23/18 1640 Signed Impressions: CONCLUSION: 1. Significant atherosclerotic disease. Greater than 70% stenosis of the left ICA and 60% stenosis of the right ICA. When correlating to the prior ultrasound there has been progression in the patient's disease. Both carotid arteries are quite tortuous. Patent vertebral arteries. The right is dominant. Head CTA 01/23/18 1640 Signed Impressions: CONCLUSION: 1. Diffuse atherosclerotic disease observed. Multiple areas of luminal narrowi ng with the most critical stenosis involving a very short segment right M1 whic h is greater than 70% stenotic. Head CT 01/23/18 0000 Signed Impressions: CONCLUSION: 1. No acute abnormality. 2. Pronounced atrophy, chronic small vessel ischemic change, and prior infarct ions as detailed above. Caprini VTE Risk Assessment Caprini VTE Risk Assessment: Mod/High Risk (score >= 2) Caprini Risk Assessment Model Point Value = 1 Point Value = 2 Point Value = 3 Point Value = 5 Age 41-60 Minor surgery BMI > 25 kg/m2 Swollen legs Varicose veins or History of unexplained or recurrent spontaneous Oral contraceptives or hormone replacement Sepsis (< 1 month) Serious lung disease, including pneumonia (< 1 month) Abnormal pulmonary function Acute myocardial infarction Congestive heart failure (< 1 month) History of inflammatory bowel disease Medical patient at bed rest Age 61-74 Arthroscopic surgery Major open surgery (> 45 min) Laparoscopic surgery (> 45 min) Malignancy Confined to bed (> 72 hours) Immobilizing plaster cast Central venous access Age >= 75 History of VTE Family history of VTE Factor V Leiden Prothrombin [id number] Lupus anticoagulant Anticardiolipin antibodies Elevated serum homocysteine Heparin-induced thrombocytopenia Other congenital or acquired thrombophilia Stroke (< 1 month) Elective arthroplasty Hip, pelvis, or leg fracture Acute spinal cord injury (< 1 month) Prophylaxis Regimen Total Risk Factor Score Risk Level Prophylaxis Regimen 0-1 Low Early ambulation 2 Moderate Order ONE of the following: *Sequential Compression Device (SCD) *Heparin 5000 units SQ BID 3-4 Higher Order ONE of the following medications: *Heparin 5000 units SQ TID *Enoxaparin/Lovenox 40 mg SQ daily (WT < 150 kg, CrCl > 30 mL/min) *Enoxaparin/Lovenox 30 mg SQ daily (WT < 150 kg, CrCl > 10-29 mL/min) *Enoxaparin/Lovenox 30 mg SQ BID (WT < 150 kg, CrCl > 30 mL/min) AND/OR *Sequential Compression Device (SCD) 5 or more Highest Order ONE of the following medications: *Heparin 5000 units SQ TID (Preferred with Epidurals) *Enoxaparin/Lovenox 40 mg SQ daily (WT < 150 kg, CrCl > 30 mL/min) *Enoxaparin/Lovenox 30 mg SQ daily (WT < 150 kg, CrCl > 10-29 mL/min) *Enoxaparin/Lovenox 30 mg SQ BID (WT < 150 kg, CrCl > 30 mL/min) AND *Sequential Compression Device (SCD) Assessment and Plan Assessment and Plan 77-year-old male with history of A. fib, multiple TIAs, CAD 4 stents, hypertension, and dementia presents to the ED via [facility] for left-sided weakness and slurred speech. Problem List: (1) Neurological abnormality ICD Codes: R29.818 - Other symptoms and signs involving the nervous system Plan: CVA versus TIA versus seizure with residual symptoms Neurology consulted and appreciate recommendations -Unable to get TPA due to anticoagulation on Xarelto -Physical/occupational therapy to work with patient -Permissive hypertension -N.p.o. until formal speech therapy evaluation/swallow study -Transition all medications, holding statin due to n.p.o. status -Vascular surgery consult placed due to bilateral carotid stenosis -Continue neuro checks -Aspirin 300 mg p.o. daily -Continue Xarelto -Monitor on telemetry Imaging: Brain MRI: No evidence of acute infarct, hemorrhage, mass or edema. Generalized atrophy. Moderate chronic ischemic white matter disease with focal areas of chronic deep white matter infarction. Stable left temporal and left cerebellar encephalomalacia. Head CTA: Diffuse atherosclerotic disease observed. Multiple areas of luminal narrowing with the most critical stenosis involving a very short segment of the right M1 which is greater than 70% stenotic Neck CTA: Significant atherosclerotic disease. Greater than 70% stenosis of the left ICA and 60% stenosis of the right ICA. When correlating to the prior ultrasound there has been progression in the patient's disease. Both carotid arteries are quite tortuous. Patent vertebral arteries right dominant. Head CT: No acute abnormality. Pronounced atrophy, chronic small vessel ischemic change, and prior infarct 2D echocardiogram pending EEG pending Consider repeat MRI in 24-48 hours IV fluids with normal saline at 75 mL/h Head of bed elevated at 30 Troponins negative 3 (2) Aspiration into respiratory tract ICD Codes: T17.908A - Unspecified foreign body in respiratory tract, part unspecified causing other injury, initial encounter Status: Acute Plan: Patient coughing with pink, frothy sputum after intake of oral medications with water last night -Chest x-ray with no acute cardiopulmonary disease Continue antibiotics started after episode of aspiration: Zosyn 4.5 g IV every 6 hours Sputum culture pending May discontinue antibiotics if patient remains stable without evidence of leukocytosis or changes on chest x-ray (3) Dementia ICD Codes: F03.90 - Unspecified dementia without behavioral disturbance Status: Acute Plan: Continue donepezil 10 mg p.o. at bedtime Continue memantine 10 milligrams p.o. twice daily (4) Hypertension ICD Codes: I10 - Essential (primary) hypertension Status: Acute Plan: We will restart home metoprolol and home diltiazem later today after permissive hypertension 24 hours (5) Afib ICD Codes: I48.91 - Unspecified atrial fibrillation Status: Acute Plan: Continue Xarelto 20 mg p.o. daily (6) Gout ICD Codes: M10.9 - Gout, unspecified Plan: Continue allopurinol 100 mg p.o. daily (7) Nutrition, metabolism, and development symptoms ICD Codes: R63.8 - Other symptoms and signs concerning food and fluid intake Plan: Diet: N.p.o. until patient passes formal swallow evaluation by speech therapy Fluids: NS 75mls/hr Vitals every 4 hours, neuro checks every 4, monitor I's and O's Case Management consulted Physician Certification 2 Midnight Certification Type: Admission for Inpatient Services Order for Inpatient Services The services are ordered in accordance with Medicare regulations or non- Medicare payer requirements, as applicable. In the case of services not specified as inpatient-only, they are appropriately provided as inpatient services in accordance with the 2-midnight benchmark. Estimated LOS (days): 2 2 days is the estimated time the patient will need to remain in the hospital, assuming treatment plan goals are met and no additional complications. Post-Hospital Plan: Not yet determined Problem Qualifiers (1) Hypertension: Qualified Codes: I10 - Essential (primary) hypertension (2) Aspiration into respiratory tract: Qualified Codes: T17.908A - Unspecified foreign body in respiratory tract, part unspecified causing other injury, initial encounter Kevin Cooper MD January 24, 2018 11:04
--- NOTE | 2018-01-24 12:00 | HHI.PR ---
Subjective Remarks afib Objective Vital Signs Date Time Temp Pulse Resp B/P (MAP) Pulse Ox O2 Delivery O2 Flow Rate FiO2 01/24/18 09:07 97.2 65 17 157/73 (101) 96 01/24/18 08:25 98 01/24/18 05:00 97.5 59 18 150/78 (102) 94 01/24/18 04:55 53 01/24/18 03:00 57 01/24/18 00:09 98.3 58 17 107/56 (73) 94 01/23/18 20:28 98.5 72 18 106/56 (73) 94 01/23/18 19:47 21 01/23/18 19:41 01/23/18 17:13 67 19 167/77 (107) 97 Room Air 01/23/18 17:12 95 Room Air 01/23/18 17:08 98.6 61 17 182/73 (109) 01/23/18 16:40 100 Nasal Cannula 2.00 01/23/18 16:40 100 2.00 Result Diagram: 01/23/18 1640 Objective Remarks very dysarthric follows commands slowly moves r well vff 2/5 lle lue 2-3 Assessment and Plan Assessment and Plan imp r pontine cva seen on mri cta left>r carotid dz basilar ok some intracranial dz afib i dw change to eliquis and asa or considering severe dementia and wheelchair bound they will consider comfort measures and hospice which they would want at [facility] Sage Rojas MD January 24, 2018 12:00
[2018-01-24 12:18] LABS: ALBUMIN 3.1 GM/DL (3.4-5.0); ALT (GPT) 28 U/L (12-78); AST (GOT) 35 U/L (15-37); BICARBONATE 25.8 MEQ/L (21.0-32.0); CALCIUM 8.9 MG/DL (8.5-10.1); CHLORIDE 104 MEQ/L (98-107); CREATININE 1.07 MG/DL (0.60-1.30); GLOMERULAR FILTRATION RATE 67 ML/MIN (>89); GLUCOSE,RANDOM 122 MG/DL (74-106); SODIUM (NA) 140 MEQ/L (136-145)
[2018-01-24 12:20] LABS: ALKALINE PHOSPHATASE 156 U/L (45-117); TOTAL BILIRUBIN ADULT 1.1 MG/DL (0.2-1.0); TOTAL PROTEIN 7.4 GM/DL (6.4-8.2)
[2018-01-24 12:36] LABS: BLOOD UREA NITROGEN 9 MG/DL (7-18)
[2018-01-24] MEDS: DILTIAZEM-CD 240 MG CAP ER PO SCH (13:19)
[2018-01-24] MEDS: METOPROLOL TARTRATE 100 MG TAB PO SCH ×2 (13:19→22:30)
[2018-01-24] MEDS: NAPHAZOLINE HCL 0.012% OPHT SOLN 15 ML BOTTLE EACH EYE PRN (13:26)
[2018-01-24 15:22] LABS: AUTOMATED NEUTROPHIL # 8.1 TH/MM3 (1.8-7.7); BASOPHIL # 0.1 TH/MM3 (0-0.2); BASOPHIL % 0.5 % (0.0-2.0); EOSINOPHIL # 0.2 TH/MM3 (0-0.4); EOSINOPHIL % 1.8 % (0.0-4.0); HEMATOCRIT 47.2 % (39.0-51.0); LYMPH % 25.4 % (9.0-44.0); LYMPHOCYTE # 3.3 TH/MM3 (1.0-4.8); MEAN CELL VOLUME 94.1 FL (80.0-100.0); MEAN CORPUSCULAR HEMOGLOBIN 31.8 PG (27.0-34.0); MEAN CORPUSCULAR HGB CONC 33.8 % (32.0-36.0); MEAN PLATELET VOLUME 7.8 FL (7.0-11.0); MONO % 9.5 % (0.0-8.0); MONOCYTE # 1.2 TH/MM3 (0-0.9); NEUT % 62.8 % (16.0-70.0); PLATELET COUNT 215 TH/MM3 (150-450); RED BLOOD COUNT 5.02 MIL/MM3 (4.50-5.90); RED CELL DISTRIBUTION WIDTH 13.9 % (11.6-17.2); WHITE BLOOD COUNT 12.9 TH/MM3 (4.0-11.0)
[2018-01-24 15:47] LABS: CHOLESTEROL/ HDL RATIO 5.08 RATIO; HDL CHOLESTEROL 30.5 MG/DL (40.0-60.0)
--- NOTE | 2018-01-24 17:17 | PD.VS.CON ---
History of Present Illness Chief Complaint: Acute CVA Consult Requested by: Medical service History of Present Illness 77 yo man who lives in correction with acute CVA manifesting as L facial droop , weakness of L UE and expressive aphasia. MRI brain negative for acute pathology. Presents as stroke alert. Neurology seen and given NIH stroke scale of 5. According to the who provides HPI given pt expressive aphasia, the swallowing difficulty is new and the weakness on the LEFT side is new. The family is deciding on Hospice care and may proceed with enteral feeding access. Past/Family/Social History Past Medical History CAD A fib HTN CVA/TIA HTN XOL gout asthma Past Surgical History PTCA with stents Social History lives in correction Family History MD Home Medications Reported Medications Tramadol (Ultram) 50 Mg Tab, 50 MG PO Q8H Y for PAIN, TAB 0 Refills 01/23/18 Memantine HCl (Memantine HCl) 5 Mg (28)-10 Mg (21) Tab.ds.pk, 10 MG PO BID 01/23/18 Metoprolol Tartrate (Metoprolol Tartrate) 100 Mg Tab, 100 MG PO BID, #60 TAB 0 Refills 01/23/18 Gabapentin (Neurontin) 100 Mg Cap, 100 MG PO HS, #30 CAP 0 Refills 01/23/18 Donepezil (Donepezil) 10 Mg Tab, 10 MG PO HS for Dementia, #30 TAB 0 Refills 01/23/18 Allopurinol (Allopurinol) 100 Mg Tab, 100 MG PO DAILY for Gout, #30 TAB 0 Refills 01/23/18 Rivaroxaban (Xarelto) 20 Mg Tab, 20 MG PO DAILY for Blood Clot Prevention, TAB 0 Refills 01/23/18 Diltiazem HCl Coated Beads (Diltiazem HCl ER) 240 Mg Cap, 240 MG PO DAILY 01/23/18 Multiple Vitamin (Multiple Vitamin) 1 Tab, 1 TAB PO DAILY for Nutritional Supplement, TAB 0 Refills 01/23/18 Dexamethasone Sod Phosphate Inj (Dexamethasone Sodium Phosphate Inj) 4 Mg/Ml Vial, 4 MG IM MONTHLY, #1 INJECTION 01/23/18 Coded Allergies: No Known Allergies (Unverified Allergy, Unknown, 01/23/18) Review of Systems ROS Limitations: Altered Mental Status Physical Exam Vitals/I&O Date Time Temp Pulse Resp B/P (MAP) Pulse Ox O2 Delivery O2 Flow Rate FiO2 01/24/18 15:37 71 01/24/18 12:00 97.4 60 16 124/63 (83) 95 01/24/18 09:07 97.2 65 17 157/73 (101) 96 01/24/18 08:25 98 01/24/18 05:00 97.5 59 18 150/78 (102) 94 01/24/18 04:55 53 01/24/18 03:00 57 01/24/18 00:09 98.3 58 17 107/56 (73) 94 01/23/18 20:28 98.5 72 18 106/56 (73) 94 01/23/18 19:47 21 01/23/18 19:41 01/23/18 17:13 67 19 167/77 (107) 97 Room Air 01/23/18 17:12 95 Room Air Neuro: R UE weak; limited L UE motion tracks with eyes and nods appropriately to questions HEENT: NC/AT; anicteric sclera Neck: no JVD Heart: irreg rate Lungs: nonlabored breathing Vascular: palpable UE pulses Laboratory Tests Test 01/23/18 19:05 01/23/18 23:03 01/24/18 04:39 01/24/18 11:35 Urine Color YELLOW Urine Turbidity CLEAR Urine pH 6.5 Urine Specific [place] 1.039 Urine Protein NEG Urine Glucose (UA) NEG Urine Ketones NEG Urine Occult Blood NEG Urine Nitrite NEG Urine Bilirubin NEG Urine Urobilinogen LESS THAN 2.0 Urine Leukocyte Esterase NEG Urine RBC 2 Urine WBC 1 Urine Squamous Epithelial Cells <1 Microscopic Urinalysis Comment CULT NOT INDICATED Urine Opiates Screen NEG Urine Barbiturates Screen NEG Urine Amphetamines Screen NEG Urine Benzodiazepines Screen NEG Urine Cocaine Screen NEG Urine Cannabinoids Screen NEG Troponin I LESS THAN 0.02 LESS THAN 0.02 Blood Urea Nitrogen 9 Creatinine 1.07 Random Glucose 122 Total Protein 7.4 Albumin 3.1 Calcium Level 8.9 Alkaline Phosphatase 156 Aspartate Amino Transf (AST/SGOT) 35 Alanine Aminotransferase (ALT/SGPT) 28 Total Bilirubin 1.1 Sodium Level 140 Potassium Level 4.1 Chloride Level 104 Carbon Dioxide Level 25.8 Anion Gap 10 Estimat Glomerular Filtration Rate 67 Test 01/24/18 14:43 White Blood Count 12.9 Red Blood Count 5.02 Hemoglobin 16.0 Hematocrit 47.2 Mean Corpuscular Volume 94.1 Mean Corpuscular Hemoglobin 31.8 Mean Corpuscular Hemoglobin Concent 33.8 Red Cell Distribution Width 13.9 Platelet Count 215 Mean Platelet Volume 7.8 Neutrophils (%) (Auto) 62.8 Lymphocytes (%) (Auto) 25.4 Monocytes (%) (Auto) 9.5 Eosinophils (%) (Auto) 1.8 Basophils (%) (Auto) 0.5 Neutrophils # (Auto) 8.1 Lymphocytes # (Auto) 3.3 Monocytes # (Auto) 1.2 Eosinophils # (Auto) 0.2 Basophils # (Auto) 0.1 CBC Comment DIFF FINAL Differential Comment Triglycerides Level 112 Cholesterol Level 155 LDL Cholesterol 102 HDL Cholesterol 30.5 Cholesterol/HDL Ratio 5.08 Date/Time Source Procedure Growth Status 01/24/18 03:30 Sputum Expectorated Sputum Gram Stain - Final Resulted 01/24/18 03:30 Sputum Expectorated Sputum Sputum Culture Pending Resulted Last 48 hours Impressions Chest X-Ray 01/24/18 0113 Signed Impressions: CONCLUSION: No acute cardiopulmonary disease. Brain MRI 01/23/18 1659 Signed Impressions: CONCLUSION: 1. No evidence of acute infarct, hemorrhage, mass or edema. 2. Generalized atrophy 3. Moderate chronic ischemic white matter disease with focal areas of chronic deep white matter infarction. 4. Stable left temporal and left cerebellar encephalomalacia. Neck CTA 01/23/18 1640 Signed Impressions: CONCLUSION: 1. Significant atherosclerotic disease. Greater than 70% stenosis of the left ICA and 60% stenosis of the right ICA. When correlating to the prior ultrasound there has been progression in the patient's disease. Both carotid arteries are quite tortuous. Patent vertebral arteries. The right is dominant. Head CTA 01/23/18 1640 Signed Impressions: CONCLUSION: 1. Diffuse atherosclerotic disease observed. Multiple areas of luminal narrowi ng with the most critical stenosis involving a very short segment right M1 whic h is greater than 70% stenotic. Head CT 01/23/18 0000 Signed Impressions: CONCLUSION: 1. No acute abnormality. 2. Pronounced atrophy, chronic small vessel ischemic change, and prior infarct ions as detailed above. Assessment and Plan Plan Likely acute CVA in very debilitated male at baseline. Significant L>R ICA plaque on CTA, >70%. Anatomically could have CEA, but after a long discussion with his about next level of care, she informed me that she is leading towards Hospice. Given those over-arching plans, a prophylactic CEA is not indicated and she agrees. Please call with any questions. Demetrio Molina MD FACS [employer] kindergarten prep teacher [facility] - Heart and Vascular Surgery at [facility] [phone] Demetrio Molina MD January 24, 2018 17:17
[2018-01-24] MEDS ORDERED: LACTULOSE SYRUP 20 GM/30 ML CUP PO PRN (19:45)
[2018-01-24] MEDS ORDERED: MAGNESIUM HYDROXIDE SUSP 30 ML CUP PO PRN (19:45)
--- NOTE | 2018-01-24 20:04 | RADRPT ---
EXAM DATE: 01/24/2018 7:59 PM EDT AGE/SEX: 77 years / Male INDICATIONS: Post NG tube placement. CLINICAL DATA: This is the patient's subsequent encounter. Patient reports that signs and symptoms h ave been present for 1 day and indicates a pain score of Nonresponsive. MEDICAL/SURGICAL HISTORY: . Hypertension. Stroke. A-fib. Myocardial infarction. None. COMPARISON: No prior [place] exams available for comparison. FINDINGS: Examination of the abdomen demonstrates a normal bowel gas pattern. No free air is identified. No o rganomegaly is evident. NG tip in the stomach. CONCLUSION: NG tube placement with tip overlying the stomach. Compression deformities in the lumbar spine with pr evious kyphoplasty at L4 and L1 Electronically signed by: Collin Daily MD 01/24/2018 8:03 PM EDT
[2018-01-24] MEDS ORDERED: BENZOCAINE 20% ORAL SPR 60 ML CAN OROPHARYNG PRN (21:45)
[2018-01-24] MEDS ORDERED: ACETAMINOPHEN 1000 MG/100 ML 100 ML IV PRN (22:00)
[2018-01-24] MEDS: DONEPEZIL HCL 5 MG TAB PO SCH (22:30)
[2018-01-25] VITALS (11 sets, daily range): BP systolic 121–163; BP diastolic 53–79; PULSE 52–83; RESP 14–21; TEMP 97.5–99.3; O2SAT 94–99
[2018-01-25 04:06] LABS: HEMATOCRIT 44.9 % (39.0-51.0); HEMOGLOBIN 15.5 GM/DL (13.0-17.0); MEAN CORPUSCULAR HEMOGLOBIN 32.2 PG (27.0-34.0); MEAN CORPUSCULAR HGB CONC 34.6 % (32.0-36.0); PLATELET COUNT 219 TH/MM3 (150-450); RED BLOOD COUNT 4.82 MIL/MM3 (4.50-5.90); RED CELL DISTRIBUTION WIDTH 13.5 % (11.6-17.2); WHITE BLOOD COUNT 12.6 TH/MM3 (4.0-11.0)
[2018-01-25 04:40] LABS: BICARBONATE 25.7 MEQ/L (21.0-32.0); CALCIUM 8.7 MG/DL (8.5-10.1); CREATININE 1.06 MG/DL (0.60-1.30)
[2018-01-25] MEDS: PIPERACIL-TAZO 4.5 GM PREMIX 100 ML IV SCH ×4 (05:00→20:57)
[2018-01-25] MEDS: SODIUM CHLOR 0.9% 1000 ML INJ 1,000 ML IV SCH ×3 (05:03→20:57)
[2018-01-25] MEDS: NAPHAZOLINE HCL 0.012% OPHT SOLN 15 ML BOTTLE EACH EYE PRN (06:45)
--- NOTE | 2018-01-25 08:22 | HHI.PR ---
Subjective Remarks afib Objective Vital Signs Date Time Temp Pulse Resp B/P (MAP) Pulse Ox O2 Delivery O2 Flow Rate FiO2 01/25/18 04:00 98.0 80 18 121/58 (79) 95 01/25/18 00:00 98.2 76 18 151/72 (98) 94 01/24/18 20:00 98.3 66 18 152/72 (98) 95 01/24/18 16:00 98.6 64 16 116/59 (78) 95 01/24/18 15:37 71 01/24/18 12:00 97.4 60 16 124/63 (83) 95 01/24/18 09:07 97.2 65 17 157/73 (101) 96 01/24/18 08:25 98 I/O 01/24/18 01/24/18 01/24/18 01/25/18 01/25/18 01/25/18 07:00 15:00 23:00 07:00 15:00 23:00 Intake Total 0 ml Balance 0 ml Intake Oral 0 ml # Voids 1 1 1 # Bowel Movements 1 Result Diagram: 01/25/18 0330 01/25/18 0330 Objective Remarks less dysarthric awakens moves r well vff 11/01 lle lue 3 Assessment and Plan Assessment and Plan imp r pontine cva seen on mri cta left>r carotid dz basilar ok some intracranial dz afib i dw change to eliquis and asa or considering severe dementia and wheelchair bound they will consider comfort measures and hospice which they would want at [place] 01/25/18 he actually looks quite a bit better this am i will dw if she wants to do some ppn until can swallow better Sage Rojas MD January 25, 2018 08:22
[2018-01-25] MEDS: MULTIVITAMIN TAB PO SCH ×2 (08:24→08:29)
[2018-01-25] MEDS: RIVAROXABAN 20 MG TAB PO SCH ×2 (08:24→08:29)
[2018-01-25] MEDS: DILTIAZEM-CD 240 MG CAP ER PO SCH ×3 (08:24→10:49)
[2018-01-25] MEDS: MEMANTINE HCL 10 MG TAB PO SCH ×4 (08:24→20:56)
[2018-01-25] MEDS: ASPIRIN 300 MG SUPP RECTAL SCH (08:25)
[2018-01-25] MEDS: METOPROLOL TARTRATE 100 MG TAB PO SCH ×3 (08:25→20:56)
--- NOTE | 2018-01-25 08:47 | HHI.FPPN ---
Subjective Remarks Patient is a 77 y/o male with acute CVA with subsequent left-sided weakness and expressive aphasia. He is more alert today and partially responding to questions. He pulled out his NG tube overnight due to discomfort and does not want to continue using it. Has signed documented refusal per nursing staff. Speech therapy has cleared him for a diet of pureed foods and thick liquids. Denies any chest pain, palpitations, shortness of breath or musculoskeletal pain. Denies any abdominal pain, nausea or vomiting. Patient's has expressed interest in getting Hospice involved. Hospice consult placed. (Documented by Tammy Plascencia, MS4) Patient pulled NG tube overnight. Patient resting comfortably in bed Still has trouble speaking and finding words speech therapy recommends pureed food with pudding consistency thickened liquids Denies CP, SOB, abdominal pain, and N/V (Documented by Dr. Alfaro, PGY1) (Melia Alfaro MD R1) Objective Vitals Vital Signs Date Time Temp Pulse Resp B/P (MAP) Pulse Ox O2 Delivery O2 Flow Rate FiO2 01/25/18 08:30 65 14 122/53 (76) 96 01/25/18 04:00 98.0 80 18 121/58 (79) 95 01/25/18 00:00 98.2 76 18 151/72 (98) 94 01/24/18 20:00 98.3 66 18 152/72 (98) 95 01/24/18 16:00 98.6 64 16 116/59 (78) 95 01/24/18 15:37 71 01/24/18 12:00 97.4 60 16 124/63 (83) 95 01/24/18 09:07 97.2 65 17 157/73 (101) 96 I/O 01/24/18 01/24/18 01/24/18 01/25/18 01/25/18 01/25/18 07:00 15:00 23:00 07:00 15:00 23:00 Intake Total 0 ml Balance 0 ml Intake Oral 0 ml # Voids 1 1 1 # Bowel Movements 1 (Melia Alfaro MD R1) Result Diagram: 01/25/18 0330 01/25/18 0330 Objective Remarks GENERAL: Elderly male lying in bed with head flat. SKIN: Stasis dermatitis in lower extremities HEAD: Atraumatic. Normocephalic. EYES: Pupils equal, reactive, and round bilaterally CARDIOVASCULAR: Irregularly irregular rate and rhythm. RESPIRATORY: Clear to auscultation at all levels. Breath sounds equal bilaterally. No wheezes, rales, or rhonchi. GASTROINTESTINAL: Abdomen soft, non-tender, nondistended. No hepatosplenomegaly. MUSCULOSKELETAL: Nonpitting edema bilaterally. No calf tenderness. NEUROLOGICAL: Awake and alert. Having difficulty speaking, however able to follow commands and answer yes/no. Otherwise cranial nerves intact. Left- sided facial droop noted. Sensation intact throughout. 2/5 strength in left arm compared to right arm. 4/5 strength in the left leg compared to right leg. (Documented by FRANCISCO Monet) Cardio: Irregular rate and rhythm Resp: CTAB Abd: soft, NT/ND, + BS Neuro: Difficulty speaking and coming up with words. Able to follow commands. Alert and Awake. Left -sided facial droop noted. Sensation intact throughout. 3/ 5 strength in left arm. 4/5 strength in right leg. (Documented by Dr. Alfaro, PGY1) (Melai Alfaro MD R1) A/P Assessment and Plan 77-year-old male with history of A. fib, multiple TIAs, CAD 4 stents, hypertension, and dementia presents to the ED via [facility] for left-sided weakness and slurred speech. Patient seen and examined with FRANCISCO Monet. Agreed with the plan below: Plan: acute CVA in mehrdad, continue PT, OT, and speech Patient approved for pureed diet with pudding consistency thickened liquids Switch Xarelto to Eliquis Continue Zosyn for possible aspiration pneumonia, consider repeat CXR in 1-2 days Hospice consulted placed for goals of care (Documented by Dr. Alfaro, PGY-1) Discharge Planning Unclear timetable Hospice consulted for goals of care (Melia Alfaro MD R1) Attending Attestation Patient examined independently and case discussed with resident physicians I have read the above note and agree with the assessment/plan as discussed with me I was involved in all medical decision making for this patient Kevin Cooper MD (Kevin Cooper MD) Problem List: (1) CVA (cerebral vascular accident) ICD Codes: I63.9 - Cerebral infarction, unspecified Status: Acute Plan: Acute right pontine CVA per Neurology. Physical/occupational therapy to work with patient Continue neuro checks Consider changing Xarelto to Eliquis per Neurology recommendations. Aspirin 300 mg p.o. daily Monitor on telemetry Vascular surgery consulted for possible CEA. Significant L>R ICA plaque on CTA, >70%. Anatomically could have CEA, but after a long discussion with his about next level of care, she informed me that she is leading towards Hospice. Given those over-arching plans, a prophylactic CEA is not indicated and she agrees. 2D echocardiogram pending EEG pending Consider repeat MRI in 24-48 hours Speech therapy recommends pured diet with pudding thickened liquids IV fluids with normal saline at 75 mL/h Imaging: Brain MRI: No evidence of acute infarct, hemorrhage, mass or edema. Generalized atrophy. Moderate chronic ischemic white matter disease with focal areas of chronic deep white matter infarction. Stable left temporal and left cerebellar encephalomalacia. Head CTA: Diffuse atherosclerotic disease observed. Multiple areas of luminal narrowing with the most critical stenosis involving a very short segment of the right M1 which is greater than 70% stenotic Neck CTA: Significant atherosclerotic disease. Greater than 70% stenosis of the left ICA and 60% stenosis of the right ICA. When correlating to the prior ultrasound there has been progression in the patient's disease. Both carotid arteries are quite tortuous. Patent vertebral arteries right dominant. Head CT: No acute abnormality. Pronounced atrophy, chronic small vessel ischemic change, and prior infarct (Documented by Tammy Plascencia, MS4) (2) Aspiration into respiratory tract ICD Codes: T17.908A - Unspecified foreign body in respiratory tract, part unspecified causing other injury, initial encounter Status: Acute Plan: Patient coughing with pink, frothy sputum after intake of oral medications with water 01/23 Chest x-ray with no acute cardiopulmonary disease Continue Zosyn 4.5 g IV every 6 hours (started 01/24) Sputum culture pending May discontinue antibiotics if patient remains stable without evidence of leukocytosis or changes on chest x-ray May consider repeat chest x-ray in 48 hours (3) Dementia ICD Codes: F03.90 - Unspecified dementia without behavioral disturbance Status: Acute Plan: Continue donepezil 10 mg p.o. at bedtime Continue memantine 10 milligrams p.o. twice daily (4) Hypertension ICD Codes: I10 - Essential (primary) hypertension Status: Acute Plan: Well-controlled. Continue home medications metoprolol 100mg p.o. twice daily and diltiazem 240mg p.o. daily. (5) Afib ICD Codes: I48.91 - Unspecified atrial fibrillation Status: Acute Plan: Change Xarelto to Eliquis 5 mg p.o. twice daily per neurology (6) Gout ICD Codes: M10.9 - Gout, unspecified Plan: Continue allopurinol 100 mg p.o. daily (7) Nutrition, metabolism, and development symptoms ICD Codes: R63.8 - Other symptoms and signs concerning food and fluid intake Status: Resolved Plan: Will advance diet to pureed foods and thick liquids. Will administer medication in crushed forms PO through this route. Fluids: NS 75mls/hr Vitals every 4 hours, neuro checks every 4, monitor I's and O's Case Management consulted (Documented by Tammy Plascencia, MS4) (Melia Alfaro MD R1) Problem Qualifiers (1) CVA (cerebral vascular accident): Qualified Codes: I63.9 - Cerebral infarction, unspecified (2) Aspiration into respiratory tract: Qualified Codes: T17.908A - Unspecified foreign body in respiratory tract, part unspecified causing other injury, initial encounter (3) Hypertension: Qualified Codes: I10 - Essential (primary) hypertension Melia Alfaro MD R1 January 25, 2018 08:47 Kevin Cooper MD January 25, 2018 14:00
[2018-01-25] MEDS: APIXABAN 2.5 MG TABLET PO SCH ×2 (10:44→20:56)
[2018-01-25] MEDS ORDERED: LACTULOSE SYRUP 20 GM/30 ML CUP PO PRN (11:45)
--- NOTE | 2018-01-25 14:23 | MG ---
cc: Jessa Jhaveri MD DATE OF : 1940 AGE: [age] years old. EEG NUMBER: [id number] REFERRING PHYSICIAN: MD Crystal ROOM: 1506. NOTE: With photic stimulation. Awake, drowsy asleep study. MRI report not in chart. HISTORY: Admitted with neurologic abnormalities, left-sided facial droop, weakness, not speaking, with a history of vascular dementia, TIAs, A-Fib, stroke, cardiac disease. MEDICATIONS: 1. Cardizem 2. Lopressor. 3. Xarelto. 4. Antibiotics. 5. Aricept. 6. Namenda. DESCRIPTION OF RECORD: The patient has about a 5.5 to 6 Hz slowing of background. EKG is artifactual. There may be atrial fibrillation. It is difficult to tell, but there is some type of arrhythmia noted. At times there are some delta waves noted as well. Photic stimulation with minimal driving response. IMPRESSION: Abnormal electrocardiogram due to mild to moderate slowing consistent with encephalopathic process. Clinical correlation advised. Jessa Jhaveri MD DF/PANCHO , 02:02 PM , 02:22 PM
[2018-01-25] MEDS: DONEPEZIL HCL 5 MG TAB PO SCH (20:56)
[2018-01-26] VITALS: BP 134/76; PULSE 75; RESP 16; TEMP 98.4; O2SAT 95
[2018-01-26] MEDS: PIPERACIL-TAZO 4.5 GM PREMIX 100 ML IV SCH ×2 (02:32→09:04)
[2018-01-26 04:00] VITALS: BP 139/66; PULSE 76; RESP 18; TEMP 97.6; O2SAT 95
[2018-01-26 06:35] LABS: HEMATOCRIT 47.2 % (39.0-51.0); HEMOGLOBIN 15.9 GM/DL (13.0-17.0); MEAN CELL VOLUME 93.4 FL (80.0-100.0); MEAN CORPUSCULAR HEMOGLOBIN 31.5 PG (27.0-34.0); MEAN CORPUSCULAR HGB CONC 33.7 % (32.0-36.0); MEAN PLATELET VOLUME 7.8 FL (7.0-11.0); PLATELET COUNT 219 TH/MM3 (150-450); RED BLOOD COUNT 5.06 MIL/MM3 (4.50-5.90); RED CELL DISTRIBUTION WIDTH 13.6 % (11.6-17.2); WHITE BLOOD COUNT 13.3 TH/MM3 (4.0-11.0)
[2018-01-26 06:45] LABS: CALCIUM 8.5 MG/DL (8.5-10.1); CREATININE 1.06 MG/DL (0.60-1.30)
--- NOTE | 2018-01-26 07:26 | HHI.PR ---
Subjective Remarks afib Objective Vital Signs Date Time Temp Pulse Resp B/P (MAP) Pulse Ox O2 Delivery O2 Flow Rate FiO2 01/26/18 04:00 97.6 76 18 139/66 (90) 95 01/26/18 00:00 98.4 75 16 134/76 (95) 95 01/25/18 20:40 83 01/25/18 20:00 99.3 72 16 163/79 (107) 94 01/25/18 16:00 97.9 72 18 131/59 (83) 99 01/25/18 15:47 52 01/25/18 12:00 97.5 73 21 128/65 (86) 97 01/25/18 09:31 95 21 01/25/18 08:30 65 14 122/53 (76) 96 01/25/18 08:00 77 I/O 01/25/18 01/25/18 01/25/18 01/26/18 01/26/18 01/26/18 07:00 15:00 23:00 07:00 15:00 23:00 Intake Total 0 ml 1048 ml 476 ml Balance 0 ml 1048 ml 476 ml Intake Oral 0 ml IV Total 1048 ml 476 ml # Voids 1 1 1 # Bowel Movements 1 1 1 1 Result Diagram: 01/26/18 0556 01/26/18 0556 Objective Remarks less dysarthric awakens moves r well vff 09/03 lle lue 09/03 Assessment and Plan Assessment and Plan imp r pontine cva seen on mri cta left>r carotid dz basilar ok some intracranial dz afib i dw change to eliquis and asa or considering severe dementia and wheelchair bound they will consider comfort measures and hospice which they would want at [facility] 01/25/18 he actually looks quite a bit better this am i will dw if she wants to do some ppn until can swallow better 01/26/18 talks a little better? weaker om left today vs just awakening will take back to [facility] and try to feed him i will sign off Sage Rojas MD January 26, 2018 07:26
[2018-01-26 08:00] VITALS: BP 130/53; PULSE 69; PULSE 78; RESP 16; TEMP 98.4; O2SAT 96
[2018-01-26] MEDS: ASPIRIN 300 MG SUPP RECTAL SCH (09:00)
[2018-01-26] MEDS: MEMANTINE HCL 10 MG TAB PO SCH (09:01)
[2018-01-26] MEDS: METOPROLOL TARTRATE 100 MG TAB PO SCH (09:01)
[2018-01-26] MEDS: APIXABAN 2.5 MG TABLET PO SCH (09:01)
[2018-01-26] MEDS: MULTIVITAMIN TAB PO SCH (09:01)
[2018-01-26] MEDS: DILTIAZEM-CD 240 MG CAP ER PO SCH (09:01)
[2018-01-26 09:44] VITALS: O2SAT 97
--- NOTE | 2018-01-26 09:58 | HHI.FPPN ---
Subjective Remarks Patient found resting comfortably in bed. No acute events overnight. He is less alert today. Oriented only to self. Still having trouble speaking and only partially responding to questions. Tolerating advanced diet of pureed foods and pudding thickened liquids. No episodes of nausea or vomiting. Denies any chest pain, palpitations, shortness of breath, constipation or diarrhea. Hospice has been by to speak with family. Documented by Tammy Plascencia, MS4 Per patient's nurse, no issues overnight. No concerns for aspiration, tolerating diet properly. Documented by June Herron, PGY-2 (June eHrron MD R2) Objective Vitals Vital Signs Date Time Temp Pulse Resp B/P (MAP) Pulse Ox O2 Delivery O2 Flow Rate FiO2 01/26/18 09:44 97 21 01/26/18 08:00 98.4 69 16 130/53 (78) 96 01/26/18 04:00 97.6 76 18 139/66 (90) 95 01/26/18 00:00 98.4 75 16 134/76 (95) 95 01/25/18 20:40 83 01/25/18 20:00 99.3 72 16 163/79 (107) 94 01/25/18 16:00 97.9 72 18 131/59 (83) 99 01/25/18 15:47 52 01/25/18 12:00 97.5 73 21 128/65 (86) 97 I/O 01/25/18 01/25/18 01/25/18 01/26/18 01/26/18 01/26/18 07:00 15:00 23:00 07:00 15:00 23:00 Intake Total 0 ml 1048 ml 476 ml Balance 0 ml 1048 ml 476 ml Intake Oral 0 ml IV Total 1048 ml 476 ml # Voids 1 1 1 # Bowel Movements 1 1 1 1 (Eko,June CUEVAS R2) Result Diagram: 01/26/18 0556 01/26/18 0556 Objective Remarks GENERAL: Elderly male found lying comfortably in bed. In no acute distress. SKIN: Stasis dermatitis in lower extremities HEAD: Atraumatic. Normocephalic. EYES: Pupils equal, reactive, and round bilaterally CARDIOVASCULAR: Irregularly irregular rate and rhythm. RESPIRATORY: Clear to auscultation at all levels. Breath sounds equal bilaterally. No wheezes, rales, or rhonchi. GASTROINTESTINAL: Abdomen soft, non-tender, nondistended. No hepatosplenomegaly. MUSCULOSKELETAL: Nonpitting edema bilaterally. No calf tenderness. NEUROLOGICAL: Awake and alert. Oriented x1. Having difficulty speaking, however able to follow commands and answer yes/no. Otherwise cranial nerves intact. Left-sided facial droop noted. Sensation intact throughout. 0/5 strength in left arm compared to right arm. 0/5 strength in the left leg compared to right leg. (Documented by FRANCISCO Monet) Gen: Elderly male, lying in bed, not very conversational Neuro: Patient unable to move left arm or left leg, unsure if unable to or if patient was unwilling. Other neuro exam was similar to previous day Documented by June Herron, PGY-2 (June Herron MD R2) A/P Assessment and Plan 77-year-old male with history of A. fib, multiple TIAs, CAD 4 stents, hypertension, and dementia presents to the ED via [facility] for left-sided weakness and slurred speech. Patient seen and examined with FRANCISCO Monet. Will discontinue Zosyn due to normal chest x-ray and patient is afebrile Agreed with the plan below: Plan: Acute CVA in mehrdad, continue PT, OT, and speech Patient tolerating advanced diet of pureed diet with pudding consistency thickened liquids Repeat CXR showed no signs of acute cardiopulmonary disease. Consider discontinuing Zosyn. Plan for discharge to [facility] with hospice care. Documented by FRANCISCO Monet Discharge Planning Plan for return to [facility] with hospice care. Accepted by [facility] (June Herron MD R2) Attending Attestation Patient examined independently and case discussed with resident physicians I have read the above note and agree with the assessment/plan as discussed with me I was involved in all medical decision making for this patient Kevin Cooper MD (Kevin Cooper MD) Problem List: (1) CVA (cerebral vascular accident) ICD Codes: I63.9 - Cerebral infarction, unspecified Status: Acute Plan: Acute right pontine CVA per Neurology. Physical/occupational therapy to work with patient Continue neuro checks Eliquis 5mg p.o. twice daily Aspirin 300 mg administered per rectum Monitor on telemetry Vascular surgery consulted for possible CEA. * Significant L>R ICA plaque on CTA, >70%. * Anatomically could have CEA, but after a long discussion with patient's , Dr. Molnia decided against prophylactic CEA due to transfer to hospice care 2D echocardiogram pending EEG shows mild to moderate slowing consistent with encephalopathic process Speech therapy recommends pured diet with pudding thickened liquids IV fluids with normal saline at 75 mL/h Neurology has signed off Imaging: Brain MRI: No evidence of acute infarct, hemorrhage, mass or edema. Generalized atrophy. Moderate chronic ischemic white matter disease with focal areas of chronic deep white matter infarction. Stable left temporal and left cerebellar encephalomalacia. Head CTA: Diffuse atherosclerotic disease observed. Multiple areas of luminal narrowing with the most critical stenosis involving a very short segment of the right M1 which is greater than 70% stenotic Neck CTA: Significant atherosclerotic disease. Greater than 70% stenosis of the left ICA and 60% stenosis of the right ICA. When correlating to the prior ultrasound there has been progression in the patient's disease. Both carotid arteries are quite tortuous. Patent vertebral arteries right dominant. Head CT: No acute abnormality. Pronounced atrophy, chronic small vessel ischemic change, and prior infarct (Documented by Tammy Plascencia, MS4) (2) Aspiration into respiratory tract ICD Codes: T17.908A - Unspecified foreign body in respiratory tract, part unspecified causing other injury, initial encounter Status: Acute Plan: Patient coughing with pink, frothy sputum after intake of oral medications with water 01/23 Chest x-ray with no acute cardiopulmonary disease Sputum culture shows heavy growth normal respiratory umesh at 24 hours WBC slightly elevated at 13.3, no clinical signs of infection, suspect stress response from recent CVA Discontinue Zosyn 4.5 g IV every 6 hours (started 01/24) 01/26: Repeat CXR shows no signs of cardiopulmonary disease, although WBC slightly increased (12.6 to 13.3). Documented by June Herron, PGY-2 (3) Dementia ICD Codes: F03.90 - Unspecified dementia without behavioral disturbance Status: Acute Plan: Continue donepezil 10 mg p.o. at bedtime Continue memantine 10 milligrams p.o. twice daily (4) Hypertension ICD Codes: I10 - Essential (primary) hypertension Status: Acute Plan: Well-controlled. Continue home medications metoprolol 100mg p.o. twice daily and diltiazem 240mg p.o. daily. (5) Afib ICD Codes: I48.91 - Unspecified atrial fibrillation Status: Acute Plan: Eliquis 5 mg p.o. twice daily per neurology (6) Gout ICD Codes: M10.9 - Gout, unspecified Plan: Continue allopurinol 100 mg p.o. daily (7) Nutrition, metabolism, and development symptoms ICD Codes: R63.8 - Other symptoms and signs concerning food and fluid intake Status: Resolved Plan: Tolerating advanced diet of pureed foods and thick liquids. Fluids: NS 75mls/hr Vitals every 4 hours, neuro checks every 4, monitor I's and O's Case Management on board (Documented by Tammy Plascencia, MS4) (June Herron MD R2) Problem Qualifiers (1) CVA (cerebral vascular accident): Qualified Codes: I63.9 - Cerebral infarction, unspecified (2) Aspiration into respiratory tract: Qualified Codes: T17.908A - Unspecified foreign body in respiratory tract, part unspecified causing other injury, initial encounter (3) Hypertension: Qualified Codes: I10 - Essential (primary) hypertension June Herron MD R2 January 26, 2018 09:58 Kevin Cooper MD January 26, 2018 16:21
--- NOTE | 2018-01-26 10:10 | HHI.DCPOC ---
Discharge Care Plan Diagnosis: (1) CVA (cerebral vascular accident) (2) Dementia (3) Afib (4) Hypertension (5) Gout (6) Aspiration into respiratory tract Goals to Promote Your Health * To prevent worsening of your condition and complications * To maintain your health at the optimal level Directions to Meet Your Goals Take your medications as prescribed Follow your dietary instruction Follow activity as directed Keep your appointments as scheduled Take your immunizations and boosters as scheduled If your symptoms worsen call your PCP, if no PCP go to Urgent Care Center or Emergency Room Smoking is Dangerous to Your Health. Avoid second hand smoke Call the 24-hour hour crisis hotline for domestic abuse at June Herron MD R2 January 26, 2018 10:10
[2018-01-26] MEDS ORDERED: APIX5TAB PO ×2 (10:17→10:18)
--- NOTE | 2018-01-26 11:12 | RADRPT ---
EXAM DATE: 01/26/2018 11:04 AM EDT AGE/SEX: 77 years / Male INDICATIONS: Shortness of breath. CLINICAL DATA: This is the patient's subsequent encounter. Patient reports that signs and symptoms h ave been present for 1 day and indicates a pain score of 10/10. MEDICAL/SURGICAL HISTORY: . Possible aspiration. . None. COMPARISON: No prior [facility] exams available for comparison. FINDINGS: PA and lateral views of the chest demonstrate the lungs to be symmetrically aerated without evidence of mass, infiltrate or effusion. The cardiomediastinal contours are unremarkable. Osseous structures are intact. CONCLUSION: No acute cardiopulmonary disease. Electronically signed by: Mark Sidhu MD 01/26/2018 11:11 AM EDT
[2018-01-26] MEDS: SODIUM CHLOR 0.9% 1000 ML INJ 1,000 ML IV SCH (11:39)
[2018-01-26 11:52] VITALS: BP 137/77; PULSE 72; RESP 18; TEMP 98.8; O2SAT 97
--- NOTE | 2018-01-26 13:10 | HHI.DS ---
Discharge Summary Admission Date January 23, 2018 at 18:29 Discharge Date: January 26, 2018 Admitting Diagnosis (1) CVA (cerebral vascular accident) Diagnosis: Principal ICD Codes: I63.9 - Cerebral infarction, unspecified Status: Acute (2) Aspiration into respiratory tract Diagnosis: Secondary ICD Codes: T17.908A - Unspecified foreign body in respiratory tract, part unspecified causing other injury, initial encounter Status: Acute (3) Dementia Diagnosis: Secondary ICD Codes: F03.90 - Unspecified dementia without behavioral disturbance Status: Acute (4) Hypertension Diagnosis: Secondary ICD Codes: I10 - Essential (primary) hypertension Status: Acute (5) Afib Diagnosis: Secondary ICD Codes: I48.91 - Unspecified atrial fibrillation Status: Acute (6) Gout Diagnosis: Secondary ICD Codes: M10.9 - Gout, unspecified Brief History 77-year-old male presenting to the emergency department with relatively sudden onset left-sided weakness, facial droop, and slurred speech. He is resident of [facility] and has a history of atrial fibrillation on anticoagulation, multiple TIAs, coronary artery disease, hypertension, and dementia. He was in his usual state of health yesterday which includes being relatively oriented and able to hold a conversation when nursing noted around 2 PM that he was lethargic and not responding and had left-sided weakness. He was brought to the emergency department for further evaluation of this left-sided weakness. In the emergency department, he had a workup including MRI of the brain that shows no acute infarct. Overnight, he continues to have left-sided weakness with facial droop that seems to be somewhat worse today. Family is in the room and they state that his left-sided weakness has somewhat progressed and he continues to have his left-sided facial droop. He has been somewhat lethargic overnight and had several episodes of coughing and emesis of a pink, frothy sputum. He was given his medications by nursing last night, and approximately 1 hour after being given his oral medications he began coughing that was productive of pink sputum. He was started on Zosyn due to concern for aspiration and chest x-ray was ordered that remained clear. He never had a hypoxic episode and did not require supplemental oxygen. Sputum cultures were also obtained. This morning , he has not had any new episodes of sputum production or coughing but appears somewhat tired due to being unable to sleep. This morning he denies any musculoskeletal pain, denies any chest pain or palpitations, denies any nausea or vomiting, denies any abdominal pain, denies any shortness of breath. CBC/BMP: 01/26/18 0556 01/26/18 0556 Significant Findings Laboratory Tests Test 01/23/18 16:40 01/23/18 19:05 01/23/18 23:03 01/24/18 04:39 White Blood Count 11.7 TH/MM3 (4.0-11.0) Monocytes (%) (Auto) 10.9 % (0.0-8.0) Monocytes # (Auto) 1.3 TH/MM3 (0-0.9) Erythrocyte Sedimentation Rate 25 mm/hr (0-20) Prothrombin Time 12.7 SEC (9.8-11.6) Activated Partial Thromboplast Time 31.5 SEC (24.3-30.1) Fibrinogen 419 mg/dL (227-377) Bedside Glucose 111 MG/DL (68-110) Total Creatine Kinase 36 U/L (39-308) Troponin I LESS THAN 0.02 NG/ML LESS THAN 0.02 NG/ML LESS THAN 0.02 NG/ML Urine Specific Moran 1.039 (1.002-1.035) Test 01/24/18 11:35 01/24/18 14:43 01/25/18 03:30 01/26/18 05:56 Random Glucose 122 MG/DL (74-106) Albumin 3.1 GM/DL (3.4-5.0) Alkaline Phosphatase 156 U/L (45-117) Total Bilirubin 1.1 MG/DL (0.2-1.0) Estimat Glomerular Filtration Rate 67 ML/MIN (>89) 68 ML/MIN (>89) 68 ML/MIN (>89) White Blood Count 12.9 TH/MM3 (4.0-11.0) 12.6 TH/MM3 (4.0-11.0) 13.3 TH/MM3 (4.0-11.0) Monocytes (%) (Auto) 9.5 % (0.0-8.0) Neutrophils # (Auto) 8.1 TH/MM3 (1.8-7.7) Monocytes # (Auto) 1.2 TH/MM3 (0-0.9) LDL Cholesterol 102 MG/DL (0-99) HDL Cholesterol 30.5 MG/DL (40.0-60.0) PE at Discharge GENERAL: Elderly male found lying comfortably in bed. In no acute distress. SKIN: Stasis dermatitis in lower extremities HEAD: Atraumatic. Normocephalic. EYES: Pupils equal, reactive, and round bilaterally CARDIOVASCULAR: Irregularly irregular rate and rhythm. RESPIRATORY: Clear to auscultation at all levels. Breath sounds equal bilaterally. No wheezes, rales, or rhonchi. GASTROINTESTINAL: Abdomen soft, non-tender, nondistended. No hepatosplenomegaly. MUSCULOSKELETAL: Nonpitting edema bilaterally. No calf tenderness. NEUROLOGICAL: Awake and alert. Oriented x1. Having difficulty speaking, however able to follow commands and answer yes/no. Otherwise cranial nerves intact. Left-sided facial droop noted. Sensation intact throughout. 0/5 strength in left arm compared to right arm. 0/5 strength in the left leg compared to right leg. (Documented by Tammy Plascencia, MS4) Gen: Elderly male, lying in bed, not very conversational Neuro: Patient unable to move left arm or left leg, unsure if unable to or if patient was unwilling. Other neuro exam was similar to previous day Documented by June Herron, PGY-2 Pt Condition on Discharge: Stable Discharge Disposition: Discharge to SNF Discharge Instructions DIET: Follow Instructions for: Heart Healthy Diet Speech Therapy-Diet Recommends: Honey Thickened Liquids, Pureed Activities you can perform: Weight Bearing as Wade Other Activity Instructions: Patient will need full assistance with ambulation Follow up Referrals: Neurology - 2 Weeks PCP Follow-up - 1 Week New Medications: Apixaban (Eliquis) 5 Mg Tab 5 MG PO BID for Blood Clot Prevention, #60 TAB 0 Refills Continued Medications: Allopurinol (Allopurinol) 100 Mg Tab 100 MG PO DAILY for Gout, #30 TAB 0 Refills Dexamethasone Sod Phosphate Inj (Dexamethasone Sodium Phosphate Inj) 4 Mg/Ml Vial 4 MG IM MONTHLY, #1 INJECTION Diltiazem HCl Coated Beads (Diltiazem HCl ER) 240 Mg Cap 240 MG PO DAILY Donepezil (Donepezil) 10 Mg Tab 10 MG PO HS for Dementia, #30 TAB 0 Refills Gabapentin (Neurontin) 100 Mg Cap 100 MG PO HS, #30 CAP 0 Refills Memantine HCl (Memantine HCl) 5 Mg (28)-10 Mg (21) Tab.ds.pk 10 MG PO BID Metoprolol Tartrate (Metoprolol Tartrate) 100 Mg Tab 100 MG PO BID, #60 TAB 0 Refills Multiple Vitamin (Multiple Vitamin) 1 Tab 1 TAB PO DAILY for Nutritional Supplement, TAB 0 Refills Discontinued Medications: Rivaroxaban (Xarelto) 20 Mg Tab 20 MG PO DAILY for Blood Clot Prevention, TAB 0 Refills Tramadol (Ultram) 50 Mg Tab 50 MG PO Q8H PRN for PAIN, TAB 0 Refills June Herron MD R2 January 26, 2018 13:10
== END 2018-01-26 15:05 | disposition hospice, inpatient (51) | DRG 65 ==
LOC: NEPC 16:32 → NEDA 18:29 → NEPFCDU 19:34 → N05A 01-24 02:59
PROVIDERS: ADMIT Family Medicine; ATTEND Family Medicine
DX: I63.9 Cerebral infarction, unspecified (principal); G81.94 Hemiplegia, unspecified affecting left nondominant side; F03.90 Unspecified dementia, unspecified severity, without behavioral disturbance, psychotic disturbance, mood disturbance, and anxiety; I48.91 Unspecified atrial fibrillation; T17.908A Unspecified foreign body in respiratory tract, part unspecified causing other injury, initial encounter; I10 Essential (primary) hypertension; M10.9 Gout, unspecified; R29.705 NIHSS score 5; R29.810 Facial weakness; R47.81 Slurred speech; Z86.73 Personal history of transient ischemic attack (TIA), and cerebral infarction without residual deficits; E78.5 Hyperlipidemia, unspecified; I25.10 Atherosclerotic heart disease of native coronary artery without angina pectoris; Z95.5 Presence of coronary angioplasty implant and graft; I25.2 Old myocardial infarction; Z79.02 Long term (current) use of antithrombotics/antiplatelets; H91.90 Unspecified hearing loss, unspecified ear; Z99.3 Dependence on wheelchair
CPT/HCPCS: 70450; 70496; 70498; 70553; 71045; 71046; 74018; 80048; 80053; 80061; 80307; 81001; 82550; 82607; 84443; 84484; 85025; 85027; 85384; 85610; 85652; 85730; 86850; 86900; 86901; 87070; 87205; 93005; 94640; 94664; 95819; A9579; J2543; J7030; Q9967